=== PATIENT | female | born 1975 | race Caucasian/White ===

== ENCOUNTER → 2018-02-19 06:50 | Outpatient (CLI) | payer OTHER, SELFPAY ==
--- NOTE | 2018-02-19 06:55 | DI.RAD.S_ITS ---
PROCEDURE: XR CERVICAL SPINE 2V OR 3V INDICATIONS: neck pain TECHNIQUE: 3 view(s) of the cervical spine were acquired. COMPARISON: None. FINDINGS: Bones: Reversal of cervical lordosis may be positional or related to muscle spasm. No fractures or dislocations to the C7 level. The lateral masses of C1 appear intact on the odontoid view. No suspicious bony lesions. Soft tissues: No prevertebral soft tissue swelling. IMPRESSION: Loss of lordosis. No acute bony abnormality. Dictated by: Hudson Weber M.D. on 02/19/2018 at 8:15 Approved by: Hudson Weber M.D. on 02/19/2018 at 8:16
--- NOTE | 2018-02-19 06:55 | DI.RAD.S_ITS ---
PROCEDURE: XR CHEST 2V INDICATIONS: shortness of breath TECHNIQUE: 2 views of the chest were acquired. COMPARISON: None. FINDINGS: Surgical changes and devices: None. Lungs and pleura: No pleural effusions or pneumothorax. Lungs are clear. Mediastinum: Mediastinal contours are normal. Heart size is normal. Bones and chest wall: No suspicious bony abnormalities. Soft tissues appear unremarkable. IMPRESSION: No acute cardiopulmonary abnormality Dictated by: Hudson Weber M.D. on 02/19/2018 at 8:16 Approved by: Hudson Weber M.D. on 02/19/2018 at 8:16
[2018-02-19 08:09] LABS: Add Manual Diff / Slide Review NO; Basophils Percent Auto 0.6 % (0-2); Eosinophils Percent Auto 1.2 % (2-4); Hematocrit 42.4 % (36-46); Hemoglobin 14.5 g/dL (12.0-16.0); Mean Corpuscular HGB Conc 34.3 % (30-36); Mean Corpuscular Hemoglobin 31.9 PG (26-34); Monocytes Percent Auto 8.7 % (3-14); Neutrophils Absolute Auto 2300 /uL (3000-5900); Neutrophils Percent Auto 48.5 % (50-75); Platelet Count 274 X10^3/uL (150-400); Red Blood Cell Count 4.56 X10^6/uL (4.0-5.2); Red Cell Distribution Width 13.3 % (11.6-14.8); White Blood Cell Count 4.6 X10^3/uL (4.5-11.0)
[2018-02-19 08:28] LABS: Alanine Aminotransferase 25 IU/L (9-52); Albumin 4.5 g/dL (3.5-5.0); Albumin Globulin Ratio 1.6 (1.0-2.8); Alkaline Phosphatase 53 U/L (38-126); Aspartate Aminotransferase 25 IU/L (14-36); BUN Creatinine Ratio 34.3 (6-22); Bilirubin Total 0.8 mg/dL (0.2-1.3); Blood Urea Nitrogen 24 mg/dL (7-17); Calcium 9.5 mg/dL (8.4-10.2); Carbon Dioxide 33 mmol/L (22-32); Chloride 99 mmol/L (98-107); Cholesterol 218 mg/dL (140-199); Estimated Glomerular Filt Rate > 60.0 mL/min (>60); Globulin 2.9 g/dL (1.7-4.1); Glucose 103 mg/dL (70-100); HDL Cholesterol 80 mg/dL (40-60); HEMOLYSIS < 15 (0-50); LDL Cholesterol Calculated 120 mg/dL (<100); Potassium 4.1 mmol/L (3.4-5.1); Sodium 141 mmol/L (137-145); Total Protein 7.4 g/dL (6.3-8.2); Triglycerides 88 mg/dL (35-150)
[2018-02-19 08:58] LABS: Thyroid Stimulating Hormone 3.16 uIU/mL (0.47-4.68)
== END ==
PROVIDERS: PCP Family Medicine; Visit Provider Family Medicine
DX: M54.2 Cervicalgia (principal); R06.02 Shortness of breath; G54.0 Brachial plexus disorders
CPT/HCPCS: 36415; 71046; 72040; 80053; 80061; 84443; 85025

== ENCOUNTER → 2018-03-25 14:50 | Outpatient (CLI) | payer OTHER, SELFPAY ==
--- NOTE | 2018-03-25 14:51 | DI.MG.S_ITS ---
BILATERAL DIGITAL SCREENING MAMMOGRAM 3D/2D WITH CAD: 03/25/2018 CLINICAL: Routine screening. Baseline exam. No prior exams were available for comparison. There are scattered fibroglandular elements in both breasts. Current study was also evaluated with a Computer Aided Detection (CAD) system. No significant masses, calcifications, or other findings are seen in either breast. IMPRESSION: NEGATIVE There is no mammographic evidence of malignancy. A 1 year screening mammogram is recommended. This exam was interpreted at Station ID: [id number]. NOTE: For mammograms, a report in lay terms will be sent to the patient. Approximately 15% of breast malignancies will not be visualized mammographically. In the management of a palpable breast mass, a negative mammogram must not discourage biopsy of a clinically suspicious lesion. Electronically Signed By: Lilliam terrazas/idania:03/25/2018 16:28:35 letter sent: Normal Exam ACR BI-RADS Category 1: Negative [id number]
== END ==
PROVIDERS: Family Provider Family Medicine; PCP Family Medicine; Visit Provider Family Medicine
DX: Z12.31 Encounter for screening mammogram for malignant neoplasm of breast (principal)
CPT/HCPCS: 77063; 77067

== ENCOUNTER → 2018-04-17 18:58 | Outpatient (CLI) | payer OTHER, SELFPAY ==
--- NOTE | 2018-04-17 19:00 | DI.MRI.S_ITS ---
PROCEDURE: MR CERVICAL SPINE WO CON INDICATIONS: neck pain TECHNIQUE: Noncontrast sagittal T1 spin echo and T2 fast spin echo, sagittal STIR, foraminal oblique sagittal T2 fast spin echo, and axial gradient echo or T2 fast spin echo through the cervical spine. COMPARISON: [facility], CR, XR CERVICAL SPINE 2V OR 3V, 02/19/2018, 6:32. FINDINGS: Image quality: Excellent. Alignment and Curvature: Straightening of the normal cervical lordosis. Trace anterolisthesis of C4 on C5. Bone Marrow: Marrow demonstrates normal overall signal. Spinal Cord: Visualized spinal cord has normal size and signal. Paraspinous Soft Tissues: No paravertebral masses. Prevertebral soft tissues are normal in thickness. C2-C3: Normal appearance. C3-C4: Normal appearance. C4-C5: Bilateral uncovertebral arthropathy and posterior intervening disc osteophyte complex, and minimal bilateral facet disease. Minimal canal narrowing with effacement of the anterior CSF and slight mass effect on the cord. No left foraminal narrowing. No definite right foraminal stenosis. C5-C6: Bilateral uncovertebral arthropathy and posterior intervening disc osteophyte complex, and bilateral facet arthropathy. Mild canal narrowing with partial effacement of the anterior thecal sac. Minimal left foraminal narrowing. No definite right foraminal stenosis C6-C7: Bilateral uncovertebral arthropathy and posterior intervening disc osteophyte complex, mild and mild bilateral facet disease. No definite canal stenosis. No foraminal narrowing. C7-T1: Normal appearance. IMPRESSION: Straightening of the normal cervical lordosis, and trace anterolisthesis of C4 on C5. Mild C4-C5 and C5-C6 canal narrowing as above. Minimal left C5-6 foraminal stenosis. Elsewhere, no high-grade foraminal narrowing. Dictated by: Mario Rogers M.D. on 04/18/2018 at 8:14 Approved by: Mario Rogers M.D. on 04/18/2018 at 8:22
== END ==
PROVIDERS: Family Provider Family Medicine; PCP Family Medicine; Visit Provider Family Medicine
DX: M54.2 Cervicalgia (principal); M48.02 Spinal stenosis, cervical region; G89.29 Other chronic pain
CPT/HCPCS: 72141

== ENCOUNTER → 2018-05-16 14:50 | Outpatient (CLI) | payer OTHER, SELFPAY | PROVIDERS: Family Provider Family Medicine; PCP Family Medicine; Visit Provider Family Medicine | DX: M54.12 Radiculopathy, cervical region (principal); G54.0 Brachial plexus disorders | CPT/HCPCS: 95886; 95911 ==

== ENCOUNTER → 2018-09-21 12:15 | Outpatient (CLI) | payer OTHER, SELFPAY ==
[2018-09-21 13:06] LABS: Add Manual Diff / Slide Review NO; Basophils Absolute Auto 0 /uL (0-100); Basophils Percent Auto 0.6 % (0-2); Eosinophils Absolute Auto 0 /uL (0-450); Eosinophils Percent Auto 0.6 % (2-4); Hematocrit 45.4 % (36-46); Hemoglobin 15.1 g/dL (12.0-16.0); Lymphocytes Absolute Auto 1900 /uL (1100-4500); Lymphocytes Percent Auto 45.5 % (25-40); Mean Corpuscular HGB Conc 33.3 % (30-36); Mean Corpuscular Hemoglobin 31.3 PG (26-34); Mean Corpuscular Volume 93.9 fL (80-100); Monocytes Absolute Auto 400 /uL (0-900); Monocytes Percent Auto 8.7 % (3-14); Neutrophils Absolute Auto 1900 /uL (1500-7000); Neutrophils Percent Auto 44.6 % (50-75); Platelet Count 306 X10^3/uL (150-400); Red Blood Cell Count 4.84 X10^6/uL (4.0-5.2); Red Cell Distribution Width 13.3 % (11.6-14.8); White Blood Cell Count 4.2 X10^3/uL (4.5-11.0)
[2018-09-21 13:32] LABS: Hemoglobin A1C% w Est Avg Glu 5.1 % (4.0-6.0)
[2018-09-21 13:35] LABS: BUN Creatinine Ratio 22.2 (6-22); Blood Urea Nitrogen 20 mg/dL (7-17); Calcium 9.5 mg/dL (8.4-10.2); Carbon Dioxide 31 mmol/L (22-32); Chloride 96 mmol/L (98-107); Estimated Glomerular Filt Rate > 60.0 mL/min (>60); Glucose 90 mg/dL (70-100); HEMOLYSIS < 15 (0-50); Potassium 3.5 mmol/L (3.4-5.1); Sodium 140 mmol/L (137-145)
[2018-09-21 14:03] LABS: Thyroid Stimulating Hormone 1.06 uIU/mL (0.47-4.68)
[2018-09-21 14:43] LABS: Creatinine Urine Random 116.1 mg/dL
[2018-09-21 14:46] LABS: Microalbumin Urine Random 0.7 mg/dL (0-1.6)
== END ==
PROVIDERS: Family Provider Family Medicine; PCP Family Medicine; Referring Provider Naturopath; Visit Provider Family Medicine
DX: I10 Essential (primary) hypertension (principal); R53.83 Other fatigue; R89.9 Unspecified abnormal finding in specimens from other organs, systems and tissues; R73.09 Other abnormal glucose; Z13.0 Encounter for screening for diseases of the blood and blood-forming organs and certain disorders involving the immune mechanism; Z13.29 Encounter for screening for other suspected endocrine disorder
CPT/HCPCS: 36415; 80048; 82043; 82570; 83036; 84443; 85025

== ENCOUNTER 2019-02-04 13:22 | Emergency (ER) | payer OTHER, SELFPAY ==
[2019-02-04 13:47] VITALS: BP 153/82; PULSE 75; RESP 13; TEMP 36.8; O2SAT 100
--- NOTE | 2019-02-04 13:50 | PC.NURSE ---
Pt states she was exposed to carbon monoxide while cleaning the oven. It is an electric stove that she had on clean mode and there were pots and pans already in the oven, which caused some fumes to come out. The kitchen was well ventilated at the time. Comes in today stating she is not feeling right. Has easy work of breathing. Lung sounds are clear. No visible rashes, no cough. Carbon monoxide pulse oximeter reads 2% with 99% oxygen saturation.
--- NOTE | 2019-02-04 14:52 | ED_ITS ---
HPI - General Adult <DICK Faust-BC - Last Filed: 02/04/19 15:25> General Chief complaint: Environmental Exposure Stated complaint: carbon monoxide poisoning Time Seen by Provider: 02/04/19 13:58 Source: patient and family Mode of arrival: ambulatory Limitations: no limitations History of Present Illness HPI narrative: The patient is a 43-year-old female Never smoker with history of hysterectomy who presents with her for chief concern of carbon monoxide exposure. She states she was exposed to carbon monoxide while cleaning the oven last night. She states she was using an electric stove, and she put it on automatically mode with cast her pots and pans in the oven. She states that the house filled with fumes and smoke. She is concerned about carbon monoxide, as she was not feeling right after exposure to this smoke. She denies any chest pain. Denies any difficulty breathing. Denies any coughing or fever. She denies any chest pain. Related Data Previous Rx's Medication Instructions Recorded epinephrine 0.3 mg IM PRN PRN #30 syr 06/14/16 hydrocodone 5 mg-acetaminophen 325 1 tab PO Q4-6H PRN #10 tab 07/15/18 mg tablet bupropion HCl XL 300 mg 24 hr 300 mg PO QAM #90 tab 08/20/18 tablet, extended release hydrochlorothiazide 25 mg tablet 25 mg PO QDAY #90 tab 08/20/18 gabapentin 300 mg capsule See Rx Instructions PO .COMPLEX 10/25/18 PRN #360 cap Allergies Allergy/AdvReac Type Severity Reaction Status Date / Time clarithromycin [From BIAXIN] Allergy Intermediate welts/hives Verified 09/23/18 15:56 Review of Systems <SHRAVAN Faust - Last Filed: 02/04/19 15:25> Review of Systems GENERAL: Denies chills, fatigue, malaise, fever, sweats. HEENT: Denies sinus pain, ear pain, sore throat, difficulty swallowing, dizziness. RESPIRATORY: See HPI CARDIOVASCULAR: Denies chest pain, palpitations, orthopnea, edema, GASTROINTESTINAL: Denies nausea, vomiting, abdominal pain, diarrhea, constipation, melena. : Denies dysuria, frequency, incontinence, hematuria, urinary retention. MUSCULOSKELETAL: denies weakness, joint pain, or bony pain SKIN: Denies rash, skin lesions, or other NEUROLOGIC: Denies weakness, headache, numbness, change in speech, confusion, seizures, incoordination. PSYCHIATRIC: No concerning psychosocial issues. 12 point review of systems is negative except for those stated above PFSH <SHRAVAN Faust - Last Filed: 02/04/19 15:25> Medical History Asthma (Chronic ~1989) Endometriosis (Chronic ~1989) Gluten intolerance (Chronic ~2007) Hypertension (Chronic ~1991) Thoracic outlet syndrome (Chronic ~1991) Chicken pox (Resolved ~1979) Surgical History History of hysterectomy (Resolved ~04/2001) History of laparoscopy (Resolved) Hx of removal of ovary (Resolved ~08/2002) Status post breast reduction (Resolved ~07/2010) Surgical procedure planned (Resolved ~02/1998) Family History (Updated 02/27/18 @ 20:09 by Dee Dee Mckeon) Father Hyperlipidemia Mother Diabetes mellitus Hypertension Grandfather Stroke Grandmother Diabetes mellitus Hypertension Stroke Grandfather Cancer Grandmother History of emphysema Social History Smoking Status: Never smoker Family History Father Hyperlipidemia Mother Diabetes mellitus Hypertension Grandfather Stroke Grandmother Diabetes mellitus Hypertension Stroke Grandfather Cancer Grandmother History of emphysema Social History Smoking Status: Never smoker Exam <SHRAVAN Faust - Last Filed: 02/04/19 15:25> Narrative Exam Narrative: GENERAL: This is a well-nourished, well-developed patient, no acute distress HEAD: Atraumatic. Normocephalic. No temporal or scalp tenderness. EYES: Pupils equal round and reactive. Extraocular motions intact. No scleral icterus. No injection or drainage. ENT: Nose without bleeding, purulent drainage or septal hematoma. Throat without erythema, tonsillar hypertrophy or exudate. Uvula midline. Airway patent. NECK: Trachea midline. No JVD or lymphadenopathy. Supple, nontender, no meningeal signs. CARDIOVASCULAR: Regular rate and rhythm without murmurs, gallops, or rubs. RESPIRATORY: Clear to auscultation. Breath sounds equal bilaterally. No wheezes, rales, or rhonchi. No cough. No increased respiratory effort. No accessory muscle use. No stridor. GASTROINTESTINAL: Abdomen soft, non-tender, nondistended. No hepato- splenomegaly, or palpable masses. No guarding. EXTREMITIES: No clubbing, cyanosis, or edema. No joint tenderness, effusion, or edema noted. BACK: Nontender without deformity or crepitance. No flank tenderness. NEURO: AOx3. SKIN: No rash or erythema. Initial Vital Signs Initial Vital Signs: Vital Signs Temperature 98.2 F 02/04/19 13:47 Pulse Rate 75 02/04/19 13:47 Respiratory Rate 13 02/04/19 13:47 Blood Pressure 153/82 H 02/04/19 13:47 Pulse Oximetry 100 02/04/19 13:47 <Merissa Osman DO - Last Filed: 02/04/19 19:15> Initial Vital Signs Initial Vital Signs: Vital Signs Temperature 98.2 F 02/04/19 13:47 Pulse Rate 75 02/04/19 13:47 Respiratory Rate 13 02/04/19 13:47 Blood Pressure 153/82 H 02/04/19 13:47 Pulse Oximetry 100 02/04/19 13:47 Course <SHRAVAN Faust - Last Filed: 02/04/19 15:25> Vital Signs - 8 hr 02/04/19 13:47 02/04/19 14:58 Temperature 98.2 F Pulse Rate 75 65 Respiratory Rate 13 14 Blood Pressure 153/82 H 146/72 H Pulse Oximetry 100 99 <Merissa Osman DO - Last Filed: 02/04/19 19:15> Vital Signs - 8 hr 02/04/19 13:47 02/04/19 14:58 Temperature 98.2 F Pulse Rate 75 65 Respiratory Rate 13 14 Blood Pressure 153/82 H 146/72 H Pulse Oximetry 100 99 Medical Decision Making <SHRAVAN Faust - Last Filed: 02/04/19 15:25> [facility] Narrative Medical decision making narrative: The patient is a 43-year-old female who presents with a chief complaint of carbon monoxide poisoning. The triage carbon monoxide pulse oximeter read 2%. She is 99% on room air. She immediately felt much improved after a small dose of oxygen in the emergency department requested to go home. She does not have any shortness of breath or chest pain. I discussed at length coming back to the ER for any acute concerns. Encouraged follow-up with PCP. Discharge Plan Departure Patient Disposition: Home Clinical Impression: Person with feared complaint, no diagnosis made Discharge Date/Time: 02/04/19 14:59 Interventions: ED Discharge Assessment Last Done: 02/04/19 14:58 Instructions: DI for Carbon Monoxide Poisoning, Preventing Carbon Monoxide Poisoning Activity Restrictions/Additional Instructions: Your testing improved showed no signs of carbon monoxide poisoning You improved greatly today after some oxygen. Please be careful For exposures in the future. Please come back to the ER for any acute concerns such as difficulty breathing or shortness of breath. Please follow up with primary care provider. Prescriptions: No Action hydrocodone-acetaminophen [[place]] 5-325 mg tablet 1 tab PO Q4-6H PRN (Reason: pain) Qty: 10 RF: 0 epinephrine 0.3 MG/0.3 ML auto-injector 0.3 mg IM PRN PRNQty: 30 RF: 13 gabapentin 300 mg capsule See Rx Instructions PO .COMPLEX PRN (Reason: pain from shingles) Qty: 360 RF: 5 bupropion HCl [Wellbutrin XL] 300 mg tablet extended release 24 hr 300 mg PO QAM Qty: 90 RF: 3 hydrochlorothiazide 25 mg tablet 25 mg PO QDAY Qty: 90 RF: 3 Referrals: Graham Shah MD [Primary Care Provider] - <Merissa Osman DO - Last Filed: 02/04/19 19:15> Cosign ED Attending Cosveronicaature Attestation: I was immediately available in the department for consultation, case discussed. Patient exposure to CO is less likely with electric oven. CO was negative on monitor. This documentation has been reviewed and I agree with assessment and plan. Supervised by Merissa Osman DO
[2019-02-04 14:58] VITALS: BP 146/72; PULSE 65; RESP 14; O2SAT 99
== END 2019-02-04 14:59 | disposition home or self-care (01) ==
PROVIDERS: Emergency Provider Nurse Practitioner Family; Family Provider Family Medicine; PCP Family Medicine
DX: T75.89XA Other specified effects of external causes, initial encounter (principal); Z71.1 Person with feared health complaint in whom no diagnosis is made
CPT/HCPCS: 99282

== ENCOUNTER → 2019-02-11 15:44 | Outpatient (CLI) | payer OTHER, SELFPAY ==
[2019-02-11 16:24] LABS: Add Manual Diff / Slide Review NO; Basophils Absolute Auto 0 /uL (0-100); Basophils Percent Auto 0.7 % (0-2); Eosinophils Absolute Auto 0 /uL (0-450); Eosinophils Percent Auto 0.8 % (2-4); Hematocrit 43.1 % (36-46); Hemoglobin 14.5 g/dL (12.0-16.0); Lymphocytes Absolute Auto 2200 /uL (1100-4500); Lymphocytes Percent Auto 39.1 % (25-40); Mean Corpuscular HGB Conc 33.6 % (30-36); Mean Corpuscular Hemoglobin 31.3 PG (26-34); Mean Corpuscular Volume 93.3 fL (80-100); Monocytes Absolute Auto 500 /uL (0-900); Monocytes Percent Auto 9.4 % (3-14); Neutrophils Absolute Auto 2800 /uL (1500-7000); Platelet Count 262 X10^3/uL (150-400); Red Blood Cell Count 4.62 X10^6/uL (4.0-5.2); Red Cell Distribution Width 13.7 % (11.6-14.8); White Blood Cell Count 5.6 X10^3/uL (4.5-11.0)
[2019-02-11 16:35] LABS: Alanine Aminotransferase 27 IU/L (9-52); Albumin 4.7 g/dL (3.5-5.0); Albumin Globulin Ratio 1.6 (1.0-2.8); Alkaline Phosphatase 69 U/L (38-126); Aspartate Aminotransferase 30 IU/L (14-36); BUN Creatinine Ratio 22.9 (6-22); Blood Urea Nitrogen 16 mg/dL (7-17); Calcium 9.7 mg/dL (8.4-10.2); Carbon Dioxide 29 mmol/L (22-32); Chloride 100 mmol/L (98-107); Estimated Glomerular Filt Rate > 60.0 mL/min (>60); Glucose 86 mg/dL (70-100); HEMOLYSIS < 15 (0-50); Potassium 3.7 mmol/L (3.4-5.1); Sodium 139 mmol/L (137-145); Total Protein 7.7 g/dL (6.3-8.2)
[2019-02-11 16:41] LABS: HEMOLYSIS < 15 (0-50); Iron 80 ug/dL (37-170)
[2019-02-11 16:51] LABS: Percent Iron Saturation 23 % (15-50); Total Iron Binding Capacity 350 ug/dL (265-497); Transferrin 321 mg/dL (206-381)
[2019-02-11 17:09] LABS: Ferritin 64.1 ng/mL (6.27-137)
== END ==
PROVIDERS: Family Provider Family Medicine; PCP Family Medicine; Visit Provider Physician Assistant
DX: K92.1 Melena (principal); R10.9 Unspecified abdominal pain; R11.0 Nausea
CPT/HCPCS: 36415; 80053; 82728; 83540; 83550; 85025

== ENCOUNTER → 2019-02-12 07:29 | Outpatient (CLI) | payer OTHER, SELFPAY ==
--- NOTE | 2019-02-12 07:32 | DI.RAD.S_ITS ---
PROCEDURE: XR CHEST 2V INDICATIONS: Dyspnea TECHNIQUE: 2 views of the chest were acquired. COMPARISON: [facility], CR, XR CHEST 2V, 02/19/2018, 6:32. FINDINGS: Surgical changes and devices: None. Lungs and pleura: Lungs are clear. No pleural effusions or pneumothorax. Mediastinum: Mediastinal contours are normal. Heart size is normal. Bones and chest wall: No suspicious bony abnormalities. Soft tissues appear unremarkable. IMPRESSION: No acute disease Dictated by: Mario Rogers M.D. on 02/12/2019 at 12:50 Approved by: Mario Rogers M.D. on 02/12/2019 at 12:51
--- NOTE | 2019-02-12 07:32 | DI.CT.S_ITS ---
PROCEDURE: CT ABDOMEN PELVIS W CON INDICATIONS: Mass LUQ possible hernia migrating up into chest wall TECHNIQUE: After the administration of oral and intravenous contrast, 5 mm thick sections acquired from the diaphragms to the symphysis. 5 mm thick coronal and sagittal reformats were performed. For radiation dose reduction, the following was used: automated exposure control, adjustment of mA and/or kV according to patient size. COMPARISON: None. FINDINGS: Image quality: Excellent. ABDOMEN: Lung bases: Sub-solid appearing pleural based nodular density measures 3 mm in size is seen in posterior lateral aspect of left lower lobe series 3 image one. 4 mm soft tissue density nodule in posterior aspect of right lower lobe new right lung base is also seen series 3 image one. Bibasilar atelectasis is seen. No pleural effusion or pneumothorax. Heart size is normal. Solid organs: Liver is enlarged in size. Hepatic steatosis is seen. No discrete hepatic lesion. Gallbladder is within normal limits. Biliary system is non-dilated. Pancreas enhances normally. Spleen is normal in size and enhancement. No adrenal nodules. Kidneys are normal in size and enhancement, without hydronephrosis. Peritoneum and bowel: Stomach, small bowel, and colon loops are normal in caliber and wall thickness. No free fluid or air. Mild fecal stasis in the colon is seen. Sigmoid diverticulosis is noted, no CT evidence of acute diverticulitis. There is suggestion of a small hiatal hernia. Nodes and vessels: No retroperitoneal or mesenteric adenopathy. Aorta and inferior vena cava are normal in caliber. Miscellaneous: No ventral hernias. PELVIS: Genitourinary: Bladder wall thickness is normal. Miscellaneous: No inguinal hernias or adenopathy. Bones: No suspicious bony lesions. No vertebral body compression fractures. IMPRESSION: 1. No evidence of anterior abdominal wall hernia. No inguinal hernia. Small hiatal hernia. 2. Mild constipation. No bowel obstruction. No free fluid or free air. Sigmoid diverticulosis, no evidence of acute diverticulitis. 3. Hepatomegaly and hepatic steatosis. No discrete hepatic lesion. 4. Tiny 3-4 mm nodular density in bilateral lung bases as above, followup CT of chest in 6-12 month is suggested for evaluation of stability. Dictated by: Orestes Stuart M.D. on 02/12/2019 at 13:03 Approved by: Orestes Stuart M.D. on 02/12/2019 at 13:12
== END ==
PROVIDERS: PCP Family Medicine; Visit Provider Physician Assistant
DX: R11.0 Nausea (principal); R10.9 Unspecified abdominal pain; K92.1 Melena; R06.00 Dyspnea, unspecified; R10.12 Left upper quadrant pain; R53.83 Other fatigue
CPT/HCPCS: 71046; 74177; Q9967

== ENCOUNTER 2019-02-12 12:25 | Emergency (ER) | payer OTHER, SELFPAY ==
[2019-02-12 12:30] VITALS: BP 147/94; PULSE 98; RESP 18; TEMP 36.7; O2SAT 99; BMI 22.8
[2019-02-12 13:00] VITALS: BP 131/90; PULSE 88; RESP 18; O2SAT 100
--- NOTE | 2019-02-12 13:17 | DI.RAD.S_ITS ---
PROCEDURE: XR CHEST 1V INDICATIONS: chest pain, lump in chest TECHNIQUE: One view of the chest was acquired. COMPARISON: [facility], CR, XR CHEST 2V, 02/12/2019, 7:38. FINDINGS: Surgical changes and devices: None. Lungs and pleura: Lungs are clear. No pleural effusions or pneumothorax. Mediastinum: Mediastinal contours appear normal. Heart size is normal. Bones and chest wall: No suspicious bony lesions. Overlying soft tissues appear unremarkable. IMPRESSION: No acute disease. For palpable abnormality, focused ultrasound could be performed for further assessment. Dictated by: Mario Rogers M.D. on 02/12/2019 at 13:46 Approved by: Mario Rogers M.D. on 02/12/2019 at 13:46
[2019-02-12 13:27] LABS: Add Manual Diff / Slide Review NO; Basophils Absolute Auto 0 /uL (0-100); Basophils Percent Auto 0.5 % (0-2); Eosinophils Absolute Auto 0 /uL (0-450); Eosinophils Percent Auto 0.4 % (2-4); Hematocrit 41.9 % (36-46); Hemoglobin 14.3 g/dL (12.0-16.0); INR 0.9 (0.9-1.3); Lymphocytes Absolute Auto 2600 /uL (1100-4500); Lymphocytes Percent Auto 43.8 % (25-40); Mean Corpuscular HGB Conc 34.2 % (30-36); Mean Corpuscular Hemoglobin 31.6 PG (26-34); Mean Corpuscular Volume 92.5 fL (80-100); Monocytes Absolute Auto 400 /uL (0-900); Monocytes Percent Auto 7.5 % (3-14); Neutrophils Absolute Auto 2800 /uL (1500-7000); Neutrophils Percent Auto 47.8 % (50-75); Platelet Count 261 X10^3/uL (150-400); Prothrombin Time 10.7 SECONDS (10.1-12.7); Red Blood Cell Count 4.54 X10^6/uL (4.0-5.2); Red Cell Distribution Width 13.4 % (11.6-14.8); White Blood Cell Count 5.9 X10^3/uL (4.5-11.0)
[2019-02-12 13:29] LABS: PTT Partial Thromboplastin Tim 28 SECONDS (26.4-36.2)
[2019-02-12 13:30] LABS: Alanine Aminotransferase 33 IU/L (9-52); Albumin 4.3 g/dL (3.5-5.0); Albumin Globulin Ratio 1.4 (1.0-2.8); Alkaline Phosphatase 65 U/L (38-126); Aspartate Aminotransferase 40 IU/L (14-36); BUN Creatinine Ratio 21.4 (6-22); Bilirubin Total 1.5 mg/dL (0.2-1.3); Blood Urea Nitrogen 15 mg/dL (7-17); Calcium 9.9 mg/dL (8.4-10.2); Carbon Dioxide 28 mmol/L (22-32); Chloride 101 mmol/L (98-107); Creatine Kinase 76 U/L (30-135); D Dimer < 200 ng/mL (<230); Estimated Glomerular Filt Rate > 60.0 mL/min (>60); Glucose 97 mg/dL (70-100); HEMOLYSIS 30 (0-50); Lipase 146 U/L (23-300); Potassium 3.8 mmol/L (3.4-5.1); Sodium 137 mmol/L (137-145); Total Protein 7.3 g/dL (6.3-8.2)
[2019-02-12] MEDS: MORPHINE 4 MG/ML INJ IV (13:31)
[2019-02-12] MEDS: SODIUM CHLORIDE 0.9% 1,000 ML 1000 ML IV (13:31)
--- NOTE | 2019-02-12 13:31 | ED.CHESTPAIN ---
HPI - Chest Pain General Chief Complaint: Abdominal Pain Stated Complaint: states hernia lodged behind her diaphram Time Seen by Provider: 02/12/19 12:56 Source: patient and family (son) Limitations: no limitations History of Present Illness HPI narrative: This is a 43-year-old female comes to the emergency department with complaint of left-sided chest/abdominal pain. Patient states sort of right underneath the left breast. It is feels like it sort of popped out or there is a new lump underneath the breast. She is concerned about a hernia. She states it is tender but that the tenderness sometimes goes up into the axilla. Patient denies any fevers or chills. She sometimes has some pain with movement but also with deep inspiration. Patient also states that it sometimes is in the left abdomen. Patient states that if she coughs or has a big bump it makes it worse. If she stands up or moves around she notices it more significantly that if she is lying flat. She states that she did have a bilateral breast reduction that was in 2010. Patient has not had any vomiting but has been nauseated on occasion. She states that she has had some changes to her stool. They have been a little bit softer than normal. Patient described black stool as well. She takes medication for blood pressure, bupropion. Patient saw her primary care physician and had a CT of her abdomen pelvis as well as a chest x-ray today. Patient does not have the final report. She states she has a known hiatal hernia. She also states she was here last week for possible carbon monoxide exposure that occurred while she was cleaning her electric up oven. She was evaluated department. Carbon oxide testing was in the normal range. Related Data Home Medications Medication Instructions Recorded Confirmed hydrochlorothiazide 25 mg tablet 12.5 mg PO DAILY 02/11/19 02/12/19 [place] Progesterone 1 dose PO DAILY 02/12/19 02/12/19 epinephrine 0.3 mg IM PRN PRN 02/12/19 02/12/19 Previous Rx's Medication Instructions Recorded bupropion HCl XL 300 mg 24 hr 300 mg PO QAM #90 tab 08/20/18 tablet, extended release hydrocodone-acetaminophen [Dumas] 1 tab PO QID PRN #10 tab 02/12/19 Allergies Allergy/AdvReac Type Severity Reaction Status Date / Time clarithromycin [From BIAXIN] Allergy Intermediate welts/hives Verified 02/12/19 12:30 Review of Systems Review of Systems ROS Unobtainable: All systems reviewed & are unremarkable except as noted in HPI and below Constitutional Denies chills, Denies fever(s), Denies lethargy and Denies weakness Cardiovascular Reports chest pain, Denies diaphoresis, Reports syncope (1-2 weeks ago.), Denies edema, Denies irregular heart rhythm, Denies lightheadedness, Denies palpitations, Denies dyspnea, Denies dyspnea on exertion and Denies orthopnea Respiratory Denies change in phlegm color, Denies chest congestion, Denies cough, Denies hemoptysis, Denies excessive phlegm production, Reports pain on inspiration, Reports pain with cough, Denies dyspnea, Denies dyspnea on exertion and Denies wheezing Gastrointestinal Gastrointestinal: Reports abdominal pain, Denies belching, Reports melena, Denies hematochezia, Denies change in bowel habits, Denies diarrhea, Denies nausea and Denies vomiting Genitourinary Denies abnormal menses, Denies abnormal vaginal bleeding, Denies hematuria, Denies urinary frequency, Denies dysuria, Denies flank pain, Denies urinary incontinence, Denies urinary urgency and Denies vaginal discharge Musculoskeletal Denies back pain, Denies muscle weakness, Denies numbness and Denies tingling Integumentary/Breasts Denies rash and Denies unusual bruising Neurologic Reports syncope (1-2 weeks ago.), Denies focal weakness, Denies numbness, Denies tingling and Denies weakness Endocrine Denies palpitations Allergic/Immunologic Denies wheezing COUNTS INCLUDE 234 BEDS AT THE [facility] Medical History Asthma (Chronic ~1989) Endometriosis (Chronic ~1989) Gluten intolerance (Chronic ~2007) Hypertension (Chronic ~1991) Thoracic outlet syndrome (Chronic ~1991) Chicken pox (Resolved ~1979) Surgical History History of hysterectomy (Resolved ~04/2001) History of laparoscopy (Resolved) Hx of removal of ovary (Resolved ~08/2002) Status post breast reduction (Resolved ~07/2010) Surgical procedure planned (Resolved ~02/1998) Family History Father Hyperlipidemia Mother Diabetes mellitus Hypertension Grandfather Stroke Grandmother Diabetes mellitus Hypertension Stroke Grandfather Cancer Grandmother History of emphysema Social History Smoking Status: Never smoker second hand exposure: No alcohol intake: current (scotch a few times a week) substance use type: marijuana (I smoke marijuana daily due to discomfort) Family History Father Hyperlipidemia Mother Diabetes mellitus Hypertension Grandfather Stroke Grandmother Diabetes mellitus Hypertension Stroke Grandfather Cancer Grandmother History of emphysema Social History Smoking Status: Never smoker second hand exposure: No alcohol intake: current (scotch a few times a week) substance use type: marijuana (I smoke marijuana daily due to discomfort) Exam Narrative Exam Narrative: GENERAL: Alert and oriented x three, well-nourished female in mild distress. Patient appears quite anxious initial evaluation. She also prefers to keep her left arm up above her head. HEENT: Head normocephalic, atraumatic, EOMI, pupils reactive, face symmetric, moist mucous membranes NECK: Supple, full range of motion CARDIOVASCULAR: Regular rate and rhythm without murmurs, rubs or gallops. On palpation of the chest patient does seem a little bit tender. While lying flat I do not appreciate any fullness or changes to the skin. When she stands up she does have a little bit more fullness underneath the left breast that she does on the right. I am not able to palpate a mass, there is only visualized fullness not able to even palpate more fullness or induration of the skin itself. There is no erythema or other skin color changes. Patient has he healed incisions consistent with breast reduction. RESPIRATORY: Breath sounds equal bilaterally, no wheezes rales or rhonchi. ABDOMEN: Soft, nontender. Normoactive bowel sounds all 4 quadrants. No guarding or rebound, rigidity, no mass : No CVA tenderness EXTREMITIES: Normal range of motion, no clubbing or edema. Neurovascularly intact NEUROLOGICAL: Cranial nerves II through XII grossly intact. Moving all extremities SKIN: Warm, dry, no petechiae, no rashes or lesions. No ecchymoses. No erythema or lesions on the chest or back. Initial Vital Signs Initial Vital Signs: Vital Signs Temperature 98.1 F 02/12/19 12:30 Pulse Rate 98 H 02/12/19 12:30 Respiratory Rate 18 02/12/19 12:30 Blood Pressure 147/94 H 02/12/19 12:30 Pulse Oximetry 99 02/12/19 12:30 Scores HEART Score Heart Score history: Slightly Suspicious Heart Score EKG: Normal Heart Score Age: < 45 years old Heart Score risk factors: 1-2 risk factors Heart Score troponin: < or = to normal limit Heart Score Total: 1 PERC Score Age greater than or equal to 50 years: No Heart rate greater than or equal to 100 bpm: No Room Air O2 Sat less than 95%: No Unilateral leg swelling: No Recent trauma or surgery: No Hemoptysis: No Prior PE or DVT: No Hormone Use: Yes (wild yam progesterone) Total PERC Score: 1 Course Orders Ordered: ED Orders 02/12/19 12:32 EKG-12 Lead Routine EKG-12 Lead Stat 02/12/19 13:00 Complete Blood Count AUTO DIFF Stat Comprehensive Metabolic Panel Stat D Dimer Stat Lipase Stat Partial Thromboplastin Time Stat Prothrombin Time INR Stat Troponin & CK Cardiac Panel Stat 02/12/19 13:17 XR chest 1V Stat 02/12/19 14:13 US chest Stat Discontinued Medications Sodium Chloride (Normal Saline 0.9%) 1,000 mls @ 1,000 mls/hr IV BOLUS ONE Stop: 02/12/19 14:15 Last Infusion: 02/12/19 15:02 Dose: 0 mls/hr Admin: 02/12/19 13:31 Dose: 1,000 mls/hr Morphine Sulfate (Morphine) 4 mg IV NOW ONE Stop: 02/12/19 13:19 Last Admin: 02/12/19 13:31 Dose: 4 mg Vital Signs - 8 hr 02/12/19 12:30 02/12/19 13:00 02/12/19 14:00 Temperature 98.1 F Pulse Rate 98 H 88 68 Respiratory Rate 18 18 12 Blood Pressure 147/94 H Blood Pressure [Right Arm] 131/90 138/87 Pulse Oximetry 99 100 02/12/19 15:00 02/12/19 16:00 Temperature Pulse Rate 70 77 Respiratory Rate 13 20 Blood Pressure Blood Pressure [Right Arm] 127/80 123/85 Pulse Oximetry MDM - Chest Pain Lab Data Attestation: I reviewed the patient's lab results. Result diagrams: 02/12/19 13:00 02/12/19 13:00 Lab Results 02/12/19 02/12/19 02/12/19 Range/Units 13:00 13:00 13:00 WBC 5.9 (4.5-11.0) X10^3/uL RBC 4.54 (4.0-5.2) X10^6/uL Hgb 14.3 (12.0-16.0) g/dL Hct 41.9 (36-46) % MCV 92.5 (80-100) fL MCH 31.6 (26-34) PG MCHC 34.2 (30-36) % RDW 13.4 (11.6-14.8) % Plt Count 261 (150-400) X10^3/uL Neut % (Auto) 47.8 L (50-75) % Lymph % (Auto) 43.8 H (25-40) % Pettis % (Auto) 7.5 (3-14) % Eos % (Auto) 0.4 L (2-4) % Baso % (Auto) 0.5 (0-2) % Neut # (Auto) 2800 (2090-7313) /uL Lymph # (Auto) 2600 (9020-7346) /uL Pettis # (Auto) 400 (0-900) /uL Eos # (Auto) 0 (0-450) /uL Baso # (Auto) 0 (0-100) /uL PT 10.7 (10.1-12.7) SECONDS INR 0.9 (0.9-1.3) APTT 28 (26.4-36.2) SECONDS D-Dimer < 200 (<230) ng/mL Sodium 137 (137-145) mmol/L Potassium 3.8 (3.4-5.1) mmol/L Chloride 101 (98-107) mmol/L Carbon Dioxide 28 (22-32) mmol/L BUN 15 (7-17) mg/dL Creatinine 0.70 (0.52-1.04) mg/dL Estimated GFR > 60.0 (>60) mL/min BUN/Creatinine Ratio 21.4 (6-22) Glucose 97 (70-100) mg/dL Calcium 9.9 (8.4-10.2) mg/dL Total Bilirubin 1.5 H (0.2-1.3) mg/dL AST 40 H (14-36) IU/L ALT 33 (9-52) IU/L Alkaline Phosphatase 65 (38-126) U/L Total Creatine Kinase 76 (30-135) U/L CK-MB (CK-2) TNP CK-MB (CK-2) Rel Index TNP Troponin I < 0.012 (0.01-0.034) ng/mL Total Protein 7.3 (6.3-8.2) g/dL Albumin 4.3 (3.5-5.0) g/dL Globulin 3.0 (1.7-4.1) g/dL Albumin/Globulin Ratio 1.4 (1.0-2.8) Lipase 146 (23-300) U/L Urine Dip Bedside Urine Glucose Negative Bedside Urine Bilirubin - Negative Bedside Urine Ketone +/- 5 Urine Specific [place] 1.010 Bedside Urine Occult Blood - Negative Bedside Urine pH 8.0 Bedside Urine Protein - Negative Bedside Urine Urobilinogen - Negative Bedside Urine Nitrite - Negative Bedside Urine Leukocytes - Negative Esterase Imaging Data Chest x-ray: Radiologist's impression: [address] [address] XRay Report Signed Patient: Tay FreemanR#: [id number] : 1975Acct:[id number] Age/Sex: 43 / FDate of Service: 02/12/19 Loc: ED Accession Number: [id number] Procedure: XR chest 1V Ordering Provider: Merissa Osman D.O. PROCEDURE: XR CHEST 1V INDICATIONS: chest pain, lump in chest TECHNIQUE: One view of the chest was acquired. [facility] 7:38. FINDINGS: Surgical changes and devices: None. Lungs and pleura: Lungs are clear. No pleural effusions or pneumothorax. Mediastinum: Mediastinal contours appear normal. Heart size is normal. Bones and chest wall: No suspicious bony lesions. Overlying soft tissues appear unremarkable. IMPRESSION: No acute disease. For palpable abnormality, focused ultrasound could be performed for further assessment. Dictated by: Mario Rogers M.D. on 02/12/2019 at 13:46 Approved by: Mario Rogers M.D. on 02/12/2019 at 13:46 CT scan - abdomen: Radiologist's impression: [address] [address] [address] Scan Report Signed Patient: Tay FreemanR#: [id number] : 1975Acct:[id number] Age/Sex: 43 / FDate of Service: 02/12/19 Loc: CT Accession Number: [id number] Procedure: CT abdomen pelvis w con Ordering Provider: Teresita Chicas P.A-C PROCEDURE: CT ABDOMEN PELVIS W CON INDICATIONS: Mass LUQ possible hernia migrating up into chest wall TECHNIQUE: After the administration of oral and intravenous contrast, 5 mm thick sections acquired from the diaphragms to the symphysis. 5 mm thick coronal and sagittal reformats were performed. For radiation dose reduction, the following was used: automated exposure control, adjustment of mA and/or kV according to patient size. COMPARISON: None. FINDINGS: Image quality: Excellent. ABDOMEN: Lung bases: Sub-solid appearing pleural based nodular density measures 3 mm in size is seen in posterior lateral aspect of left lower lobe series 3 image one. 4 mm soft tissue density nodule in posterior aspect of right lower lobe new right lung base is also seen series 3 image one. Bibasilar atelectasis is seen. No pleural effusion or pneumothorax. Heart size is normal. Solid organs: Liver is enlarged in size. Hepatic steatosis is seen. No discrete hepatic lesion. Gallbladder is within normal limits. Biliary system is non-dilated. Pancreas enhances normally. Spleen is normal in size and enhancement. No adrenal nodules. Kidneys are normal in size and enhancement, without hydronephrosis. Peritoneum and bowel: Stomach, small bowel, and colon loops are normal in caliber and wall thickness. No free fluid or air. Mild fecal stasis in the colon is seen. Sigmoid diverticulosis is noted, no CT evidence of acute diverticulitis. There is suggestion of a small hiatal hernia. Nodes and vessels: No retroperitoneal or mesenteric adenopathy. Aorta and inferior vena cava are normal in caliber. Miscellaneous: No ventral hernias. PELVIS: Genitourinary: Bladder wall thickness is normal. Miscellaneous: No inguinal hernias or adenopathy. Bones: No suspicious bony lesions. No vertebral body compression fractures. IMPRESSION: 1. No evidence of anterior abdominal wall hernia. No inguinal hernia. Small hiatal hernia. 2. Mild constipation. No bowel obstruction. No free fluid or free air. Sigmoid diverticulosis, no evidence of acute diverticulitis. 3. Hepatomegaly and hepatic steatosis. No discrete hepatic lesion. 4. Tiny 3-4 mm nodular density in bilateral lung bases as above, followup CT of chest in 6-12 month is suggested for evaluation of stability. Dictated by: Orestes Stuart M.D. on 02/12/2019 at 13:03 Approved by: Orestes Stuart M.D. on 02/12/2019 at 13:12 chest wall US: Radiologist's impression: [address] [address] Ultrasound Report Signed Patient: Tay Freeman#: [id number] : 1975Acct:[id number] Age/Sex: 43 / FDate of Service: 02/12/19 Loc: ED Accession Number: [id number] Procedure: US chest Ordering Provider: Merissa Osman D.O. PROCEDURE: US CHEST [facility], CR, XR CHEST 1V, 02/12/2019, 13:23. INDICATIONS: full below left breast w/ standing, painful, hx reduction'11 FINDINGS: Targeted sonographic imaging of the left anterior chest was performed to evaluate for a site of the patient's area of fullness along the inferior margin of the left breast, status post breast reduction. No soft tissue mass or loculated fluid collection is identified. No suspicious soft tissue abnormalities are evident. IMPRESSION: No focal abnormalities are evident on the anterior anterior left chest at the site of the patient's fullness. There are no fluid collections or masses. Dictated by: Agus Montaño M.D. on 02/12/2019 at 14:51 Approved by: Agus Montaño M.D. on 02/12/2019 at 14:56 ECG Data Attestation: I personally reviewed and interpreted this ECG as follows: Interpretation: Sinus rhythm rate of 90 P are 156 QRS of 91 QTC of 388. No acute process an EKG. No prior for comparison. MDM Narrative Medical decision making narrative: Patient's labs show slightly elevated lymphocyte count of 43.8%. Otherwise normal CBC, coags including D-dimer are negative, CMP shows normal BMP with a elevated bilirubin at 1.5 and AST of 40 with an ALT that is 33, alk-phos that is normal at 65, normal lipase and negative troponin. Chest x-ray does not show any acute changes. Patient has CT of the abdomen pelvis today that showed no evidence of hernia abdominal wall hernia, there is a small hiatal hernia. Some mild constipation. Some sigmoid diverticulosis without evidence of diverticulitis. Hepatomegaly and hepatic steatosis. Some tiny nodular de nsity in the bilateral lung bases follow-up a CT of the chest in 6-12 months is suggested for evaluation of stability. Chest wall ultrasound did not show any acute findings. We did discuss getting a CT of the chest but patient has already had significant contrast and radiation today. After discussion patient was agreeable to ultrasound knowing that we can't completely rule out PE or other structural changes to the lungs but that her lab work other change in elevated bilirubin does not suggest that she is having a cardiac or pulmonary cause or vascular cause at this time. Patient is much more comfortable after a dose of morphine. Did evaluate in the [facility] systems she does not have regular narcotic medications. Discussed with patient to follow up with her primary care either Dr. Shah or pseudo ordered in who she has been seeing recently. They can discuss if they feel that she does need further imaging in the short term. And patient can get any further imaging in the long-term as suggested by her imaging ordered earlier today by her primary service. Patient given short term narcotic prescription for breakthrough pain and strict return precautions. Discharge Plan Departure Patient Disposition: Home Clinical Impression: Atypical chest pain, Elevated bilirubin, Pulmonary nodule Instructions: DI for Atypical Chest Pain Activity Restrictions/Additional Instructions: Follow up with your primary care physician in the next week for recheck. Call for an appointment. You may take ibuprofen up to 2400 mg in a 24 hour period he may take 600 mg every 6 hours. You may take up to a 1000 mg every 8 hours or 3000 mg in 24 hours. Her pain medication that is prescribed also has Tylenol so do not take Tylenol and the pain medication prescribed at the same time. Take pain medication as prescribed, this medication can make a very sleepy, do not drive, perform hazardous activities or make any major decisions while taking it. You may continue your home medications as prescribed. Return to the emergency department for fevers greater 100.4 F, passing out, rapidly worsening or changing chest pain, shortness of breath, persistent vomiting, black or bloody stools or other new or concerning symptoms. Prescriptions: New hydrocodone-acetaminophen [Dumas] 5-325 mg tablet 1 tab PO QID PRN (Reason: pain) Qty: 10 RF: 0 No Action bupropion HCl [Wellbutrin XL] 300 mg tablet extended release 24 hr 300 mg PO QAM Qty: 90 RF: 3 hydrochlorothiazide 25 mg tablet 12.5 mg PO DAILY RF: 0 epinephrine 0.3 MG/0.3 ML auto-injector 0.3 mg IM PRN PRN (Reason: Allergic Reaction) RF: 0 [place] Progesterone 1 dose PO DAILY RF: 0 Referrals: Graham Shah MD [Primary Care Provider] - Teresita Chicas PA-C [Advanced Screener Operator] -
[2019-02-12 13:42] LABS: Troponin I < 0.012 ng/mL (0.01-0.034)
[2019-02-12 14:00] VITALS: BP 138/87; PULSE 68; RESP 12
--- NOTE | 2019-02-12 14:13 | DI.US.S_ITS ---
PROCEDURE: US CHEST COMPARISON: [facility], CR, XR CHEST 1V, 02/12/2019, 13:23. INDICATIONS: full below left breast w/ standing, painful, hx reduction'11 FINDINGS: Targeted sonographic imaging of the left anterior chest was performed to evaluate for a site of the patient's area of fullness along the inferior margin of the left breast, status post breast reduction. No soft tissue mass or loculated fluid collection is identified. No suspicious soft tissue abnormalities are evident. IMPRESSION: No focal abnormalities are evident on the anterior anterior left chest at the site of the patient's fullness. There are no fluid collections or masses. Dictated by: Agus Montaño M.D. on 02/12/2019 at 14:51 Approved by: Agus Montaño M.D. on 02/12/2019 at 14:56
[2019-02-12 15:00] VITALS: BP 127/80; PULSE 70; RESP 13
[2019-02-12 16:00] VITALS: BP 123/85; PULSE 77; RESP 20
== END 2019-02-12 17:10 | disposition home or self-care (01) ==
PROVIDERS: Emergency Provider Emergency Medicine; PCP Family Medicine
DX: R07.89 Other chest pain (principal); R17 Unspecified jaundice; R91.1 Solitary pulmonary nodule; R11.0 Nausea; R10.9 Unspecified abdominal pain; K92.1 Melena; R06.00 Dyspnea, unspecified; R10.12 Left upper quadrant pain; R53.83 Other fatigue
CPT/HCPCS: 36591; 71045; 71046; 74177; 76604; 80053; 81003; 82550; 83690; 84484; 85025; 85379; 85610; 85730; 93005; 96361; 96374; 99284; 99285; J2270; Q9967

== ENCOUNTER 2019-05-30 21:41 | Emergency (ER) | payer OTHER, SELFPAY ==
[2019-05-30 21:48] VITALS: BP 151/79; PULSE 94; RESP 16; O2SAT 97
--- NOTE | 2019-05-30 21:57 | ED.WOUNDLAC ---
HPI - Wound/Laceration General Chief Complaint: Wound/Laceration Stated Complaint: RIGHT HAND SMALL FINGER INJURY Time Seen by Provider: 05/30/19 21:49 Source: patient Mode of arrival: Ambulatory History of Present Illness HPI narrative: Patient is a 44-year-old female who presents with right pinky laceration. 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 This happened at 1:00 p.m. it is a small laceration she applied a bandage in even Super glue to make it stop bleeding however it has not stopped bleeding. She has no numbness or tingling. She is not on any anti-platelet or anticoagulation medication. Tetanus up to date,. Onset (ago): hour(s) Related Data Home Medications Medication Instructions Recorded Confirmed hydrochlorothiazide 25 mg tablet 12.5 mg PO DAILY 02/11/19 02/17/19 [place] Progesterone 1 dose PO DAILY 02/12/19 02/17/19 epinephrine 0.3 mg IM PRN PRN 02/12/19 02/17/19 Previous Rx's Medication Instructions Recorded bupropion HCl 300 mg 24 hr tablet, 300 mg PO QAM #90 tab 08/20/18 extended release hydrocodone-acetaminophen [[place]] 1 tab PO QID PRN #10 tab 02/12/19 Allergies Allergy/AdvReac Type Severity Reaction Status Date / Time clarithromycin [From BIAXIN] Allergy Intermediate welts/hives Verified 02/17/19 11:37 Review of Systems Review of Systems Narrative: GENERAL: Denies chills,fever HEENT: Denies throat pain RESPIRATORY: Denies dyspnea, cough, wheezing CARDIOVASCULAR: Denies chest pain, palpitations GASTROINTESTINAL: Denies nausea, vomiting MUSCULOSKELETAL: Denies extremity pain, injury SKIN: See HPI NEUROLOGIC: Denies weakness, dizziness, headache, numbness 8 point review of systems is negative except for those stated above and HPI Patient History Medical History Asthma (Chronic ~1989) Chicken pox (Resolved ~1979) Endometriosis (Chronic ~1989) Gluten intolerance (Chronic ~2007) Hypertension (Chronic ~1991) Thoracic outlet syndrome (Chronic ~1991) Surgical History History of hysterectomy (Resolved ~04/2001) History of laparoscopy (Resolved) Hx of removal of ovary (Resolved ~08/2002) Status post breast reduction (Resolved ~07/2010) Surgical procedure planned (Resolved ~02/1998) Family History Father Hyperlipidemia Mother Diabetes mellitus Hypertension Grandfather Stroke Grandmother Diabetes mellitus Hypertension Stroke Grandfather Cancer Grandmother History of emphysema Social History Smoking Status: Never smoker second hand exposure: No alcohol intake: current (scotch a few times a week) substance use type: marijuana (I smoke marijuana daily due to discomfort) alcohol intake frequency: a few times a week Substance Use Type: marijuana Exam Initial Vital Signs Initial Vital Signs: Vital Signs Pulse Rate 94 H 05/30/19 21:48 Respiratory Rate 16 05/30/19 21:48 Blood Pressure 151/79 H 05/30/19 21:48 Pulse Oximetry 97 05/30/19 21:48 GENERAL: Well-appearing, well-nourished and in no acute distress. CARDIOVASCULAR: peripheral pulses in tact, cap refill <2 sec RESPIRATORY: No respiratory distress, speaks in full sentences without difficulty EXTREMITIES: Normal range of motion, no clubbing or edema. Neurovascularly intact NEUROLOGICAL: Cranial nerves II through XII grossly intact. Normal gait and speech. SKIN: 1 cm laceration right pinky palmar side. no super glue noted Procedures Laceration Repair Laceration 1: Site: hand (Pinky finger) Side (If applicable): right Size (cm): 1 Description: linear Depth: simple, single layer Local Anesthetic: lidocaine 1% Amount of anesthesia used (mL): 1 Pre-repair: wound explored Skin layer closed with: nylon Size (cm): 5-0 Number of sutures: 1 Course Orders Ordered: Discontinued Medications Lidocaine HCl (Xylocaine 1% (Pf)) 2 ml SUBCUT NOW ONE Stop: 05/30/19 21:58 Vital Signs Vital signs: Vital Signs - 8 hr 05/30/19 21:48 Pulse Rate 94 H Respiratory Rate 16 Blood Pressure 151/79 H Pulse Oximetry 97 Discharge Plan Departure Patient Disposition: Home Clinical Impression: Laceration of right little finger Qualifiers: Encounter type: initial encounter Damage to nail status: without damage Foreign body presence: without foreign body Qualified Code(s): S61.216A - Laceration without foreign body of right little finger without damage to nail, initial encounter Discharge Date/Time: 05/30/19 22:24 Instructions: DI for Laceration Repair Activity Restrictions/Additional Instructions: 1. Have your suture removed in 5-7 days, you may go to walk-in clinic, return to the ER or call your primary care physician. 2. No soaking in water including dishes, bathtubs, Lakes, swimming pools etc 3. Signs of infection include, but not limited to, increased redness, increased swelling, increased pain, fever and purulent drainage, if the symptoms should arise, you may need an antibiotic and you should have a reevaluation either by your primary care provider or by the emergency department. Prescriptions: No Action bupropion HCl [Wellbutrin XL] 300 mg tablet extended release 24 hr 300 mg PO QAM Qty: 90 RF: 3 hydrochlorothiazide 25 mg tablet 12.5 mg PO DAILY RF: 0 epinephrine 0.3 MG/0.3 ML auto-injector 0.3 mg IM PRN PRN (Reason: Allergic Reaction) RF: 0 [place] Progesterone 1 dose PO DAILY RF: 0 hydrocodone-acetaminophen [[place]] 5-325 mg tablet 1 tab PO QID PRN (Reason: pain) Qty: 10 RF: 0 Referrals: Graham Shah MD [Primary Care Provider] -
--- NOTE | 2019-05-30 22:23 | PC.NURSE ---
Sutures and wound care performed by Dr. Mariano. Pt tolerated well. Wound cleansed and bandaid applied. Pt to have sutures removed in 5-7 days, verbalizes understanding.
== END 2019-05-30 22:24 | disposition home or self-care (01) ==
PROVIDERS: Emergency Provider Emergency Medicine; PCP Family Medicine
DX: S61.216A Laceration without foreign body of right little finger without damage to nail, initial encounter (principal); W26.8XXA Contact with other sharp object(s), not elsewhere classified, initial encounter; Y99.0 Civilian activity done for income or pay
CPT/HCPCS: 12001; 99283

== ENCOUNTER → 2020-03-15 16:25 | Outpatient (CLI) | payer OTHER, SELFPAY ==
[2020-03-15 17:29] LABS: Add Manual Diff / Slide Review NO; Basophils Absolute Auto 100 /uL (0-100); Basophils Percent Auto 0.7 % (0-2); Eosinophils Absolute Auto 100 /uL (0-450); Eosinophils Percent Auto 1.4 % (2-4); Hematocrit 41.7 % (36-46); Hemoglobin 13.9 g/dL (12.0-16.0); Lymphocytes Absolute Auto 2300 /uL (1100-4500); Lymphocytes Percent Auto 30.1 % (25-40); Mean Corpuscular HGB Conc 33.4 % (30-36); Mean Corpuscular Hemoglobin 31.1 PG (26-34); Monocytes Absolute Auto 500 /uL (0-900); Monocytes Percent Auto 6.7 % (3-14); Neutrophils Absolute Auto 4600 /uL (1500-7000); Neutrophils Percent Auto 61.1 % (50-75); Platelet Count 295 X10^3/uL (150-400); Red Blood Cell Count 4.48 X10^6/uL (4.0-5.2); Red Cell Distribution Width 12.9 % (11.6-14.8); White Blood Cell Count 7.6 X10^3/uL (4.5-11.0)
[2020-03-15 18:29] LABS: Alanine Aminotransferase 18 IU/L (<35); Albumin 4.6 g/dL (3.5-5.0); Albumin Globulin Ratio 1.6 (1.0-2.8); Alkaline Phosphatase 76 U/L (38-126); Amylase 74 U/L (30-110); Aspartate Aminotransferase 27 IU/L (14-36); BUN Creatinine Ratio 23.2 (6-22); Blood Urea Nitrogen 19 mg/dL (7-17); Carbon Dioxide 31 mmol/L (22-32); Chloride 98 mmol/L (98-107); Cholesterol 187 mg/dL (140-199); Estimated Glomerular Filt Rate > 60.0 mL/min (>60); Globulin 2.9 g/dL (1.7-4.1); Glucose 83 mg/dL (70-100); HDL Cholesterol 92 mg/dL (40-60); HEMOLYSIS < 15 (0-50); LDL Cholesterol Calculated 81 mg/dL (<100); Lipase 65 U/L (23-300); Potassium 4.4 mmol/L (3.4-5.1); Sodium 136 mmol/L (137-145); Total Protein 7.5 g/dL (6.3-8.2); Triglycerides 72 mg/dL (35-150)
[2020-03-26 14:22] LABS: H pylori Breath Test NEGATIVE
== END ==
PROVIDERS: PCP Family Medicine; Referring Provider Family Medicine; Visit Provider Family Medicine
DX: I10 Essential (primary) hypertension (principal); R10.9 Unspecified abdominal pain
CPT/HCPCS: 36415; 80053; 80061; 82150; 83013; 83690; 84443; 85025

== ENCOUNTER → 2020-03-17 10:20 | Outpatient (CLI) | payer OTHER, SELFPAY ==
--- NOTE | 2020-03-17 10:22 | DI.US.S_ITS ---
PROCEDURE: US ABDOMEN COMPLETE INDICATIONS: ABDOMINAL PAIN TECHNIQUE: Real-time scanning was performed of the abdominal and retroperitoneal organs, with image documentation. COMPARISON: None. FINDINGS: Liver: The liver demonstrates prominent size. The liver demonstrates generalized increased echogenicity. This decreases ultrasound sensitivity for detection of hepatic masses. The main portal vein is mildly prominent at 1.8 cm. Normal appearing hepatopetal flow can be seen. Gallbladder: No findings of gallstones or sludge are seen. The gallbladder wall is not thickened, measuring 3 mm or less. No specific pericholecystic fluid is seen. The sonographic Abbott sign is negative. Biliary ducts: Intrahepatic bile ducts are non-dilated. Extrahepatic bile duct caliber measures 7 mm. Normal is 6-7 mm or less in diameter, or 10 mm or less post-cholecystectomy. Pancreas: Visualized portions of the pancreas are sonographically normal. Spleen: Spleen is normal in size and homogeneous in echotexture. Kidneys: Kidneys are normal in size and echotexture. Right kidney measures 10.6 cm long; left kidney measures 10.3 cm long. No hydronephrosis or nephrolithiasis. No solid masses. Aorta: Visualized aorta is normal in caliber at less than 3 cm. Iliacs: Not seen. IVC: Intrahepatic inferior vena cava is patent. Miscellaneous: No free abdominal fluid. IMPRESSION: Normal appearing gallbladder. The common bile duct measures at the upper limits of normal at 7 mm. Enlarged, echogenic liver. Slightly enlarged portal vein, with normal appearing, hepatopetal flow seen within it. Dictated by: Kike Rodriguez M.D. on 03/17/2020 at 10:42 Approved by: Kike Rodriguez M.D. on 03/17/2020 at 10:44
== END ==
PROVIDERS: PCP Family Medicine; Referring Provider Family Medicine; Visit Provider Family Medicine
DX: R10.9 Unspecified abdominal pain (principal); R16.0 Hepatomegaly, not elsewhere classified; I87.8 Other specified disorders of veins
CPT/HCPCS: 76700

== ENCOUNTER 2020-03-22 05:12 | Emergency (ER) | payer OTHER, SELFPAY ==
[2020-03-22] VITALS (7 sets, daily range): BP systolic 146–173; BP diastolic 80–86; PULSE 65–98; RESP 18–20; TEMP 36.7; O2SAT 89–100; BMI 22.8
--- NOTE | 2020-03-22 05:20 | ED_ITS ---
HPI - Abdominal Pain General Chief Complaint: Abdominal Pain Stated Complaint: massive pain right side and back, nausea Time Seen by Provider: 03/22/20 05:12 Source: patient Mode of arrival: Ambulatory Limitations: no limitations History of Present Illness HPI narrative: 44-year-old female nonsmoker, occasional drinker with history of hypertension presents with a chief complaint of severe, stabbing epigastric pain with some radiation to her right flank and back. She states the pain is worse with motion and with deep breaths and it makes her feel short of breath. She has been suffering with these symptoms off and on for quite some time and recently saw her primary care provider who ordered labs and ultrasound. The ultrasound was unremarkable. She states that she frequently has these symptoms late in the night or early in the morning and often times it seems to get better over the course of the day. She denies recent travel or injury. She has had no fever or chills. She has nausea and vomiting which seems to be worse when the pain is flaring up. She does not take any acid reducers and denies having had an EGD before. MD complaint: abdominal pain Onset (ago): minute(s) Pain Consistency: intermittent Location: epigastric Severity: severe Quality: stabbing and sharp Radiation: R flank, back and chest Relieving factors: nothing Exacerbating factors: eating, vomiting and movement Related Data Home Medications Medication Instructions Recorded Confirmed epinephrine 0.3 mg IM PRN PRN 02/12/19 03/15/20 hormone replacement therapy- PO 02/24/20 03/15/20 progesterone/estrogen Previous Rx's Medication Instructions Recorded alprazolam 0.25 mg tablet See Rx Instructions PO QID PRN #30 02/24/20 tab bupropion HCl 300 mg 24 hr tablet, 300 mg PO QAM #90 tab 02/24/20 extended release hydrochlorothiazide 25 mg tablet 12.5 mg PO DAILY #45 tab 02/24/20 pantoprazole [Protonix] 40 mg PO DAILY #30 tab 03/22/20 Allergies Allergy/AdvReac Type Severity Reaction Status Date / Time clarithromycin [From BIAXIN] Allergy Intermediate welts/hives Verified 03/15/20 15:32 Review of Systems Constitutional Constitutional: Denies chills, Denies fatigue, Denies fever(s), Denies frequent falls, Denies lethargy and Denies weakness Eyes Eyes: Denies change in vision, Denies eye discharge, Denies irritation and Denies loss of vision ENT Ears, Nose, Mouth, and Throat: Denies change in voice, Denies dizziness, Denies neck pain, Denies sore throat and Denies throat swelling Cardiovascular Cardiovascular: Reports chest pain, Denies irregular heart rhythm, Denies lightheadedness, Denies palpitations, Denies dyspnea, Denies dyspnea on exertion and Denies orthopnea Respiratory Respiratory: Denies cough, Reports pain on inspiration, Denies dyspnea, Denies dyspnea on exertion and Denies wheezing Gastrointestinal Gastrointestinal: Reports abdominal pain, Denies change in bowel habits, Denies diarrhea, Denies nausea and Denies vomiting Musculoskeletal Musculoskeletal: Denies neck pain and Denies numbness Integumentary/Breasts Skin/Breast: Denies pruritus, Denies erythema, Denies rash and Denies wounds Neurologic Neurologic: Denies behavioral changes, Denies confusion, Denies dizziness, Denies frequent falls, Denies loss of vision, Denies numbness and Denies weakness Psychiatric Psychiatric: Reports anxiety, Denies behavioral changes, Denies confusion, Denies depression, Denies homicidal ideation and Denies suicidal ideation Endocrine Endocrine: Denies fatigue, Denies flushing and Denies palpitations Hematologic/Lymphatic Hematologic/Lymphatic: Denies easy bruising Allergic/Immunologic Allergic/Immunologic: Denies urticaria, Denies throat swelling and Denies wheezing Patient History Medical History Asthma (Chronic ~1989) Chicken pox (Resolved ~1979) Endometriosis (Chronic ~1989) Gluten intolerance (Chronic ~2007) Hypertension (Chronic ~1991) Thoracic outlet syndrome (Chronic ~1991) Surgical History History of hysterectomy (Resolved ~04/2001) History of laparoscopy (Resolved) Hx of removal of ovary (Resolved ~08/2002) Status post breast reduction (Resolved ~07/2010) Surgical procedure planned (Resolved ~02/1998) Family History Father Hyperlipidemia Mother Diabetes mellitus Hypertension Grandfather Stroke Grandmother Diabetes mellitus Hypertension Stroke Grandfather Cancer Grandmother History of emphysema Social History Smoking Status: Never smoker second hand exposure: No alcohol intake: current (scotch a few times a week) substance use type: marijuana (I smoke marijuana daily due to discomfort) Smoking Status: Never smoker alcohol intake frequency: a few times a week Substance Use Type: marijuana Exam Narrative Exam Narrative: GENERAL: [44] year old patient appears stated age. Well- nourished, well-developed patient, in obvious distress, crying in pain and clu tching her chest. Very anxious HEAD: Atraumatic. Normocephalic. EYES: Pupils equal round and reactive. Extraocular motions intact. No scleral icterus. No injection or drainage. ENT: Nose without bleeding, purulent drainage. Throat without erythema, tonsillar hypertrophy or exudate. Airway patent. NECK: Trachea midline. Non tender CARDIOVASCULAR: Regular rate and rhythm without murmurs, gallops, or rubs. RESPIRATORY: Clear to auscultation. Breath sounds equal bilaterally. No wheezes, rales, or rhonchi. GASTROINTESTINAL: Abdomen soft, severely tender in epigastrum, nondistended. EXTREMITIES: No edema or joint tenderness. BACK: Nontender without deformity or crepitance. No flank tenderness. NEURO: AOx3. SKIN: No rash or erythema of visible areas Initial Vital Signs Initial Vital Signs: Vital Signs Temperature 98.0 F 03/22/20 05:20 Pulse Rate 98 H 03/22/20 05:20 Respiratory Rate 20 03/22/20 05:20 Blood Pressure 160/80 H 03/22/20 05:20 Pulse Oximetry 98 03/22/20 05:20 Course Orders Ordered: ED Orders 03/22/20 EKG-12 Lead Stat 03/22/20 05:20 Complete Blood Count AUTO DIFF Stat Comprehensive Metabolic Panel Stat D Dimer Stat Lipase Stat Troponin & CK Cardiac Panel Stat 03/22/20 05:48 CT chest abd pel w con Stat Ondansetron HCl (Zofran) 4 mg IV Q4HR PRN PRN Reason: Nausea And Vomiting Last Admin: 03/22/20 05:33 Dose: 4 mg Documented by: HOANG Discontinued Medications Sodium Chloride (Normal Saline 0.9%) 1,000 mls @ 1,000 mls/hr IV BOLUS ONE Stop: 03/22/20 06:20 Last Admin: 09/07/20 05:29 Dose: 1,000 mls/hr Documented by: HOANG Lorazepam (Ativan) 1 mg IV NOW ONE Stop: 03/22/20 05:22 Last Admin: 03/22/20 05:30 Dose: 1 mg Documented by: HOANG Pantoprazole Sodium (Protonix) 40 mg IV NOW ONE Stop: 03/22/20 05:22 Last Admin: 03/22/20 05:33 Dose: 40 mg Documented by: HOANG Reevaluation(s) Reevaluation #1: patient feeling much better after Ativan, still having pain, but nausea and anxiety greatly improved Time: 06:06 Vital Signs Vital signs: Vital Signs - 8 hr 03/22/20 05:20 03/22/20 05:23 03/22/20 05:30 Temperature 98.0 F Pulse Rate 98 H 79 77 Respiratory Rate 20 Blood Pressure 160/80 H Pulse Oximetry 98 99 100 03/22/20 05:31 Temperature Pulse Rate 73 Respiratory Rate Blood Pressure 173/86 H Pulse Oximetry 99 MDM - Abdominal Pain Lab Data Result diagrams: 03/22/20 05:20 03/22/20 05:20 Labs: Lab Results 03/22/20 03/22/20 03/22/20 Range/Units 05:20 05:20 05:20 WBC 6.7 (4.5-11.0) X10^3/uL RBC 4.72 (4.0-5.2) X10^6/uL Hgb 15.0 (12.0-16.0) g/dL Hct 43.9 (36-46) % MCV 93.0 (80-100) fL MCH 31.7 (26-34) PG MCHC 34.1 (30-36) % RDW 13.0 (11.6-14.8) % Plt Count 271 (150-400) X10^3/uL Neut % (Auto) 53.1 (50-75) % Lymph % (Auto) 35.6 (25-40) % [place] % (Auto) 8.6 (3-14) % Eos % (Auto) 1.7 L (2-4) % Baso % (Auto) 1.0 (0-2) % Neut # (Auto) 3600 (5089-1141) /uL Lymph # (Auto) 2400 (2353-6054) /uL [place] # (Auto) 600 (0-900) /uL Eos # (Auto) 100 (0-450) /uL Baso # (Auto) 100 (0-100) /uL D-Dimer < 200 (<230) ng/mL Sodium 139 (137-145) mmol/L Potassium 4.3 (3.4-5.1) mmol/L Chloride 104 (98-107) mmol/L Carbon Dioxide 28 (22-32) mmol/L BUN 17 (7-17) mg/dL Creatinine 0.71 (0.52-1.04) mg/dL Estimated GFR > 60.0 (>60) mL/min BUN/Creatinine Ratio 23.9 H (6-22) Glucose 99 (70-100) mg/dL Calcium 9.4 (8.4-10.2) mg/dL Total Bilirubin 1.3 (0.2-1.3) mg/dL AST 34 (14-36) IU/L ALT 25 (<35) IU/L Alkaline Phosphatase 71 (38-126) U/L Total Creatine Kinase 109 (30-135) U/L CK-MB (CK-2) 0.92 (<2.37) ng/mL CK-MB (CK-2) Rel Index 0.8 L (1.5-5.0) % Troponin I < 0.012 (0.01-0.034) ng/mL Total Protein 8.3 H (6.3-8.2) g/dL Albumin 4.7 (3.5-5.0) g/dL Globulin 3.6 (1.7-4.1) g/dL Albumin/Globulin Ratio 1.3 (1.0-2.8) Lipase 77 (23-300) U/L Imaging Data CT scan - chest: Radiologist's Impression: No acute or inflammatory abnormality Nonobstructing stone in the right kidney Sigmoid diverticulosis Discharge Plan Departure Patient Disposition: Home Clinical Impression: Acute epigastric pain Instructions: DI for Epigastric Pain Activity Restrictions/Additional Instructions: *You have been diagnosed with [ Epigastric pain. Your labs and images are very reassuring. ] *What to do: *Take medications as directed. Your prescription was sent to [facility]. * Also Avoid caffeine, alcohol, nicotine, and spicy foods. *Follow up with your primary care provider in 2-3 days, call for an appointment. Let them know you were seen in the Emergency Department and that we ask that you be seen in follow up. It may be reasonable to consider asking him about getting a referral for an endoscopy. *Return to ER if you should have any new, worsening or concerning symptoms Prescriptions: New pantoprazole [Protonix] 40 mg tablet,delayed release (DR/EC) 40 mg PO DAILY Qty: 30 RF: 0 No Action hormone replacement therapy- progesterone/estrogen PO RF: 0 bupropion HCl [Wellbutrin XL] 300 mg tablet extended release 24 hr 300 mg PO QAM Qty: 90 RF: 3 hydrochlorothiazide 25 mg tablet 12.5 mg PO DAILY Qty: 45 RF: 3 alprazolam [Xanax] 0.25 mg tablet See Rx Instructions PO QID PRN (Reason: anxiety) Qty: 30 RF: 0 epinephrine 0.3 MG/0.3 ML auto-injector 0.3 mg IM PRN PRN (Reason: Allergic Reaction) RF: 0 Referrals: Graham Shah MD [Primary Care Provider] -
[2020-03-22] MEDS: SODIUM CHLORIDE 0.9% 1,000 ML 1000 ML IV (05:29)
[2020-03-22] MEDS: LORazepam 2 MG/ML INJ 1 MG IV (05:30)
[2020-03-22] MEDS: PANTOPRAZOLE 40 MG VIAL IV (05:33)
[2020-03-22] MEDS: ONDANSETRON 4 MG/2 ML INJ IV (05:33)
[2020-03-22 05:37] LABS: Add Manual Diff / Slide Review NO; Basophils Absolute Auto 100 /uL (0-100); Eosinophils Absolute Auto 100 /uL (0-450); Eosinophils Percent Auto 1.7 % (2-4); Hematocrit 43.9 % (36-46); Lymphocytes Absolute Auto 2400 /uL (1100-4500); Lymphocytes Percent Auto 35.6 % (25-40); Mean Corpuscular HGB Conc 34.1 % (30-36); Mean Corpuscular Hemoglobin 31.7 PG (26-34); Monocytes Absolute Auto 600 /uL (0-900); Monocytes Percent Auto 8.6 % (3-14); Neutrophils Absolute Auto 3600 /uL (1500-7000); Neutrophils Percent Auto 53.1 % (50-75); Platelet Count 271 X10^3/uL (150-400); Red Blood Cell Count 4.72 X10^6/uL (4.0-5.2); White Blood Cell Count 6.7 X10^3/uL (4.5-11.0)
[2020-03-22 05:41] LABS: Alanine Aminotransferase 25 IU/L (<35); Albumin 4.7 g/dL (3.5-5.0); Albumin Globulin Ratio 1.3 (1.0-2.8); Alkaline Phosphatase 71 U/L (38-126); Aspartate Aminotransferase 34 IU/L (14-36); BUN Creatinine Ratio 23.9 (6-22); Bilirubin Total 1.3 mg/dL (0.2-1.3); Blood Urea Nitrogen 17 mg/dL (7-17); Calcium 9.4 mg/dL (8.4-10.2); Carbon Dioxide 28 mmol/L (22-32); Chloride 104 mmol/L (98-107); Creatine Kinase 109 U/L (30-135); Estimated Glomerular Filt Rate > 60.0 mL/min (>60); Globulin 3.6 g/dL (1.7-4.1); Glucose 99 mg/dL (70-100); Lipase 77 U/L (23-300); Potassium 4.3 mmol/L (3.4-5.1); Sodium 139 mmol/L (137-145); Total Protein 8.3 g/dL (6.3-8.2)
[2020-03-22 05:48] LABS: HEMOLYSIS 98 (0-50)
--- NOTE | 2020-03-22 05:48 | DI.CT.S_ITS ---
PROCEDURE: CT CHEST ABD PEL W CON INDICATIONS: severe epigastric pain with radiation to back TECHNIQUE: After the administration of intravenous contrast, 5 mm thick sections acquired from the lung apices to the symphysis. 5 mm coronal and sagittal reformats were performed, with additional 7 mm MIP reformats through the lungs. For radiation dose reduction, the following was used: automated exposure control, adjustment of mA and/or kV according to patient size. COMPARISON: , US, US ABDOMEN COMPLETE, 03/17/2020, 10:47. , CT, CT ABDOMEN PELVIS W CON, 02/12/2019, 8:26. FINDINGS: Image quality: Excellent. CHEST: Lungs and pleura: No acute airspace opacities. Within the subpleural left lower lobe on series 3, image 202, there is a 3 mm nodular focus seen. Within the right lower lobe on series 3, image 188, there is a 6 mm calcified focus seen, which is attributed to a benign granuloma. No pleural effusions or pneumothorax. Central and peripheral airways appear patent and normal in caliber. Mediastinum: Heart size is normal. No pericardial effusion. No mediastinal or hilar adenopathy by size criteria. Thoracic aorta and central pulmonary arteries are normal in size. No findings of aortic dissection are seen. Esophagus is normal in caliber. No hiatal hernia. Chest wall: No axillary or supraclavicular adenopathy by size criteria. Thyroid gland demonstrates no significant abnormality. ABDOMEN: Solid organs: Liver is prominent in size. No focal suspicious liver abnormalities are seen. Incidental note is made of focal fatty infiltration adjacent to the falciform ligament, which is not regarded to be pathologic. Gallbladder wall is not thickened. Biliary system is non dilated. Pancreas enhances normally. Spleen is normal in size and enhancement. No adrenal nodules. Kidneys demonstrate normal size and enhancement, without hydronephrosis. There is a tiny 2 mm nonobstructing right-sided kidney stone seen, as on series 2, image 75. Peritoneum and bowel: Bowel loops demonstrate normal wall thickness and caliber. No free fluid or air. Minimal sigmoid diverticulosis is seen, without diverticulitis. Nodes and vessels: No retroperitoneal or mesenteric adenopathy by size criteria. Aorta and inferior vena cava are normal in size. Negative for aortic dissection. Miscellaneous: No ventral hernias. PELVIS: Genitourinary: Bladder wall thickness is normal. No uterus is seen and is presumed to have been previously removed. No adnexal masses can be seen on either side. Miscellaneous: No inguinal hernias or adenopathy. Left pelvic clips are seen. Bones: No suspicious bony lesions. No vertebral body compression fractures. IMPRESSION: Negative study. Specifically, no acute aortic pathology is seen. Stable lung base nodules are seen, which are regarded to be benign. No specific imaging follow-up is recommended, although attention should be paid to these foci on any future follow-up studies. Incidental note is made of: Enlarged liver 2 mm nonobstructing right-sided kidney stone Hysterectomy Left pelvic clips Diverticulosis, without active diverticulitis Note: No significant discrepancy from the preliminary report. Dictated by: Kike Rodriguez M.D. on 03/22/2020 at 7:24 Approved by: Kike Rodriguez M.D. on 03/22/2020 at 7:31
[2020-03-22 05:53] LABS: Troponin I < 0.012 ng/mL (0.01-0.034)
[2020-03-22 05:55] LABS: D Dimer < 200 ng/mL (<230)
[2020-03-22 05:56] LABS: CKMB % Relative Index 0.8 % (1.5-5.0); Creatine Kinase MB 0.92 ng/mL (<2.37)
== END 2020-03-22 07:00 | disposition home or self-care (01) ==
PROVIDERS: Emergency Provider Emergency Medicine; PCP Family Medicine
DX: R10.13 Epigastric pain (principal); I10 Essential (primary) hypertension; R07.9 Chest pain, unspecified; F41.9 Anxiety disorder, unspecified
CPT/HCPCS: 36415; 71260; 74177; 80053; 82550; 82553; 83690; 84484; 85025; 85379; 93005; 96361; 96374; 96375; 99284; C9113; J2060; J2405; Q9967

== ENCOUNTER → 2020-05-05 08:49 | Outpatient (CLI) | payer OTHER, SELFPAY ==
--- NOTE | 2020-05-05 08:49 | DI.NM.S_ITS ---
PROCEDURE: NM HIDA WITH CCK PHARMACEUTICAL: 5.5 mCi Tc-99m mebrofenin IV; 1.4 mcg CCK IV. INDICATIONS: biliary colic, no gall stones on US or CT TECHNIQUE: Following intravenous administration of Tc-99m mebrofenin, sequential anterior abdominal images were obtained. To evaluate the contractile response of the gallbladder in response to Cholecystokinin (CCK), sincalide (0.02 ?g/kg) was administered by slow intravenous infusion approximately 60 minutes after the administration of the radiopharmaceutical. Sequential imaging was continued for 30 minutes after the start of CCK infusion. Gallbladder ejection fraction was calculated. COMPARISON: [facility], US, US ABDOMEN COMPLETE, 03/17/2020, 10:47. [facility], CT, CT CHEST ABD PEL W CON, 03/22/2020, 5:52. FINDINGS: Biliary scan: There is normal tracer uptake and excretion by the liver. There is normal visualization of the intrahepatic ducts, common bile duct, and gallbladder. There is normal tracer transit into the duodenum. CCK stimulation: There is normal contractile response of the gallbladder to CCK infusion. The calculated gallbladder ejection fraction is 65%; normal values are above 35%. It has been shown that any patient abdominal pain after CCK administration is related to the rate of CCK injection, rather than to any underlying gallbladder disease (Clinical Nuclear Medicine 2012; 37: 63-70. Journal of Nuclear Medicine 2014; 55: 1-9). IMPRESSION: 1. Normal filling of gallbladder. No evidence for acute cholecystitis. 2. Normal contractile response of gallbladder to CCK stimulation. Dictated by: Vance Olivarez M.D. on 05/05/2020 at 11:38 Approved by: Vance Olivarez M.D. on 05/05/2020 at 11:39
== END ==
PROVIDERS: PCP Family Medicine; Referring Provider Family Medicine; Visit Provider Surgery
DX: Z01.812 Encounter for preprocedural laboratory examination (principal); Z20.828 Contact with and (suspected) exposure to other viral communicable diseases; R10.11 Right upper quadrant pain; K80.50 Calculus of bile duct without cholangitis or cholecystitis without obstruction
CPT/HCPCS: 78227; 87635; A9537; J2805

== ENCOUNTER → 2020-05-05 16:06 | Outpatient (CLI) | payer OTHER, SELFPAY ==
[2020-05-05 17:49] LABS: COVID19 -Nasal RAPID Negative (Negative)
== END ==
PROVIDERS: PCP Family Medicine; Visit Provider Family Medicine
DX: Z01.812 Encounter for preprocedural laboratory examination (principal); Z20.828 Contact with and (suspected) exposure to other viral communicable diseases
CPT/HCPCS: 87635

== ENCOUNTER 2020-05-07 06:45 | Day surgery (SDC) | payer OTHER, SELFPAY ==
--- NOTE | 2020-05-07 | PATH_ITS ---
[facility] Accession Number: [id number] . 01 Material submitted: . colon - RANDOM COLON TISSUE BIOPSIES . 02 Diagnosis: Random Colon, Tissue Biopsies: Colonic mucosa with no diagnostic abnormality. Negative for active, chronic, and microscopic colitis. Negative for dysplasia and malignancy. . MRV 05/11/2020 1357 Local . 02 Electronically signed: . Melida Elaine MD, Pathologist NPI- [id number] . 01 Gross description: . The specimen is received in formalin, labeled random colon, and consists of multiple cheek fragments of soft tissue measuring 1.0 x 0.8 x 0.2 cm in aggregate. The specimen is filtered and entirely submitted in cassette A1. ([id number]) /FRR 05/08/2020 1755 Local . 02 Pathologist provided ICD-10: R10.9 . 02 CPT . 325275 Performed at: 01 [facility] [address] [id number] MD Pipe Galarza MD Phone: [phone] Performed at: 02 [facility] [address] [place], [place] [id number] MD Melida Elaine MD Phone: [phone]
[2020-05-07 07:17] VITALS: BP 121/79; PULSE 16; RESP 76; TEMP 36.6; O2SAT 99; BMI 22.8
[2020-05-07] MEDS: SODIUM CHLORIDE 0.9% 1,000 ML 200 ML IV (07:17)
--- NOTE | 2020-05-07 07:40 | PM.PREOP ---
Pre-operative Note COVID-19 COVID-19 status: Negative Result date/Date tested (Pos, Neg/Pending): 05/05/20 Interval Note History & Physical reviewed/Exam performed by Physician: Yes Changes to H&P: No ASA Class (for procedural sedation): II
[2020-05-07] MEDS: ONDANSETRON 4 MG/2 ML INJ IV (07:45)
--- NOTE | 2020-05-07 07:47 | PM.OP.ENDO ---
Operative Date/Time/Diagnoses Date of procedure: 05/07/20 Time of procedure: 07:48 Pre-op diagnosis: change in bowel habits Procedure & Clinicians Study performed: Colonoscopy Procedural sedation performed by the endoscopist Random biopsies of the colonic mucosa throughout the colon Same procedure as scheduled: Yes Indications: Change in bowel habits, family history of colorectal cancer Surgeon: Kiesha De La Vega Procedure Notes SCOAP/Timeout: Performed Procedure in detail: The patient was brought to the room and placed in left lateral decubitus position with all bony prominences padded. A time-out was performed and then the patient was given procedural sedation starting with [4] mg of Versed and [100] mcg of fentanyl. A total of 14 mg of Versed and 350 micro g of fentanyl were required for the entire procedure. Vitals were monitored throughout the procedure and remained stable. Once adequately sedated, the procedure was begun. A rectal exam was performed revealing [no abnormalities]. The colonoscope was then introduced to the rectum and advanced to the cecum in the usual fashion. The colon was quite tortuous and required multiple maneuvers including using the stiffener, and counter pressure on the abdominal wall in order to safely reach the cecum. The sigmoid colon was thickened and tortuous with many diverticula and false passages. There was stool impacted in 1 diverticula in the sigmoid which could not be flushed out. A picture was taken. []The cecum was identified by the appendiceal orifice, the mucosal tri-fold, and the ileocecal valve. The scope was then retracted while rotating side to side and examining each mucosal fold. No polyps or masses were seen. Random biopsies were taken throughout the colon to rule out microscopic colitis. [] At the conclusion of the procedure retroflexion was performed and [small grade 1-2 internal hemorrhoids without stigmata of bleeding were seen]. The scope was then withdrawn from the rectum the procedure was concluded. The patient tolerated the procedure well and was transferred to the PACU in stable condition. Scope withdrawal time: 10 Sedation minutes: 33 Findings: diverticulosis Specimen(s): other (Random biopsies throughout the colon) Complications: none Impression: Diverticulosis throughout the colon, most significantly in the descending and sigmoid colon, with impacted stool 1 diverticula within the sigmoid. Very tortuous colon Post-procedure Recommendations: Colonscopy in 10 years and Other recommendation (Further recommendations pending biopsy results) Follow up: as needed Disposition: PACU
[2020-05-07] MEDS: MIDAZOLAM 5 MG/5 ML VIAL IV (07:54)
[2020-05-07] MEDS: fentaNYL 250 MCG/5 ML INJ IV (07:54)
[2020-05-07 08:27] VITALS: BP 149/88; PULSE 81; RESP 10; TEMP 36.6; O2SAT 100
[2020-05-07 08:32] VITALS: BP 129/88; PULSE 70; RESP 15; TEMP 36.1; O2SAT 100
[2020-05-07 08:36] VITALS: BP 125/72; PULSE 74; RESP 16; TEMP 36.2; O2SAT 100
[2020-05-07 08:41] VITALS: BP 159/96; PULSE 70; RESP 12; TEMP 36.2; O2SAT 100
[2020-05-07 08:43] VITALS: BP 144/98; PULSE 72; RESP 15; TEMP 36.3; O2SAT 100
== END 2020-05-07 09:30 | disposition home or self-care (01) ==
PROVIDERS: PCP Family Medicine; Referring Provider Family Medicine; Visit Provider Surgery
PROC: 0DJD8ZZ Inspection of Lower Intestinal Tract, Via Natural or Artificial Opening Endoscopic (ICD-10-PCS; CPT 45378; principal; 2020-05-07 07:45)
DX: K57.30 Diverticulosis of large intestine without perforation or abscess without bleeding (principal); R19.4 Change in bowel habit; K64.0 First degree hemorrhoids; J45.909 Unspecified asthma, uncomplicated; I10 Essential (primary) hypertension
CPT/HCPCS: 45380; 99152; 99153; J2250; J2405; J3010

== ENCOUNTER → 2020-05-11 13:44 | Outpatient (CLI) | payer OTHER, SELFPAY ==
--- NOTE | 2020-05-11 13:51 | DI.RAD.S_ITS ---
PROCEDURE: XR ACUTE ABDOMEN SERIES INDICATIONS: Pain/fever post colonoscopy rule out free air TECHNIQUE: One view chest and two views of the abdomen were acquired. COMPARISON: [facility], CT, CT CHEST ABD PEL W CON, 03/22/2020, 5:52. FINDINGS: Surgical changes and devices: None. Chest: Lungs are clear. Heart size is normal. No pleural effusions. No pneumoperitoneum. Abdomen: Bowel gas pattern is normal. No suspicious calcifications. Visualized solid organ contours appear normal. Colonic obstipation. Bones: No suspicious bony lesions. IMPRESSION: Colonic obstipation, no sign of intestinal obstruction or perforation. Several surgical clips right lower quadrant suggest prior appendectomy. Dictated by: Jose Alberto Langley M.D. on 05/11/2020 at 14:21 Approved by: Jose Alberto Langley M.D. on 05/11/2020 at 14:22
[2020-05-11 14:38] LABS: Add Manual Diff / Slide Review NO; Basophils Absolute Auto 0 /uL (0-100); Basophils Percent Auto 0.6 % (0-2); Eosinophils Absolute Auto 0 /uL (0-450); Eosinophils Percent Auto 0.7 % (2-4); Hematocrit 43.9 % (36-46); Hemoglobin 14.4 g/dL (12.0-16.0); Lymphocytes Absolute Auto 1900 /uL (1100-4500); Lymphocytes Percent Auto 29.4 % (25-40); Mean Corpuscular HGB Conc 32.9 % (30-36); Mean Corpuscular Hemoglobin 30.6 PG (26-34); Mean Corpuscular Volume 93.1 fL (80-100); Monocytes Absolute Auto 400 /uL (0-900); Monocytes Percent Auto 6.9 % (3-14); Neutrophils Absolute Auto 4000 /uL (1500-7000); Neutrophils Percent Auto 62.4 % (50-75); Platelet Count 254 X10^3/uL (150-400); Red Blood Cell Count 4.71 X10^6/uL (4.0-5.2); Red Cell Distribution Width 12.9 % (11.6-14.8); White Blood Cell Count 6.5 X10^3/uL (4.5-11.0)
[2020-05-11 14:53] LABS: Alanine Aminotransferase 23 IU/L (<35); Albumin 4.7 g/dL (3.5-5.0); Albumin Globulin Ratio 1.5 (1.0-2.8); Alkaline Phosphatase 80 U/L (38-126); Aspartate Aminotransferase 27 IU/L (14-36); BUN Creatinine Ratio 17.9 (6-22); Blood Urea Nitrogen 14 mg/dL (7-17); Calcium 9.6 mg/dL (8.4-10.2); Carbon Dioxide 35 mmol/L (22-32); Chloride 100 mmol/L (98-107); Estimated Glomerular Filt Rate > 60.0 mL/min (>60); Globulin 3.1 g/dL (1.7-4.1); Glucose 87 mg/dL (70-100); HEMOLYSIS < 15 (0-50); Potassium 3.8 mmol/L (3.4-5.1); Sodium 139 mmol/L (137-145); Total Protein 7.8 g/dL (6.3-8.2)
== END ==
PROVIDERS: PCP Family Medicine; Referring Provider Internal Medicine; Visit Provider Specialist
DX: R10.9 Unspecified abdominal pain (principal); R11.0 Nausea; R50.9 Fever, unspecified
CPT/HCPCS: 36415; 74022; 80053; 85025

== ENCOUNTER 2020-07-17 08:44 | Emergency (ER) | payer OTHER, SELFPAY ==
--- NOTE | 2020-07-17 08:48 | ED.MALEGU ---
HPI - Male Genitourinary General Stated complaint: BLOOD IN URINE/STOOL, HX GALLBLADDER ISSUES Time Seen by Provider: 07/17/20 08:47 Source: patient Mode of arrival: Ambulatory Limitations: no limitations History of Present Illness HPI Narrative: 45F former smoker with known gall bladder disease and planned endoscopy presents with the chief complaint of ongoing epigastric pain, blood in urine and blood with BMs over the past few days. She's had ongoing nausea and vomiting for much of the week. Related Data Home Medications Medication Instructions Recorded Confirmed hormone replacement therapy- 1 tab PO DAILY 02/24/20 07/02/20 progesterone/estrogen Probiotic 10,000 mmu cells PO DAILY 05/07/20 07/02/20 estradiol 10 mcg VAGINAL WEEKLY 05/07/20 07/02/20 Previous Rx's Medication Instructions Recorded bupropion HCl 300 mg 24 hr tablet, 300 mg PO QAM #90 tab 02/24/20 extended release hydrochlorothiazide 25 mg tablet 12.5 mg PO DAILY #45 tab 02/24/20 epinephrine 0.3 mg/0.3 mL 0.3 mg IM PRN PRN #1 each 03/31/20 injection, auto-injector pantoprazole 40 mg tablet,delayed 40 mg PO BID #60 tab 04/19/20 release ondansetron 4 mg PO Q8H PRN #20 tab 05/07/20 alprazolam 0.5 mg tablet 0.5 mg PO DAILY PRN #30 tab 06/23/20 Allergies Allergy/AdvReac Type Severity Reaction Status Date / Time clarithromycin [From BIAXIN] Allergy Intermediate welts/hives Verified 07/02/20 15:05 gluten AdvReac Cough Verified 07/02/20 15:05 lactase [From Dairy Aid] AdvReac Nausea Verified 07/02/20 15:05 sodium tripolyphosphate Allergy Severe Anaphylaxis Uncoded 07/02/20 15:05 Patient History Medical History (Updated 07/02/20 @ 16:25 by Kiesha De La Vega MD) Asthma (~1989) Chicken pox (~1979) Endometriosis (~1989) Gluten intolerance (~2007) Hypertension (~1991) Mitral valve prolapse Thoracic outlet syndrome (~1991) Surgical History History of hysterectomy (~04/2001) History of laparoscopy Hx of removal of ovary (~08/2002) Status post breast reduction (~07/2010) Surgical procedure planned (~02/1998) Family History Father Hyperlipidemia Mother Diabetes mellitus Hypertension Grandfather Stroke Grandmother Diabetes mellitus Hypertension Stroke Grandfather Cancer Grandmother History of emphysema Social History household members: spouse, family and children Smoking Status: Former smoker second hand exposure: No alcohol intake: current substance use type: marijuana Smoking Status: Former smoker alcohol intake frequency: a few times a week Substance Use Type: marijuana Course Orders Ordered: ED Orders 07/17/20 08:56 Complete Blood Count AUTO DIFF Stat Comprehensive Metabolic Panel Stat 07/17/20 08:58 Lipase Stat Sodium Chloride (Normal Saline 0.9%) 1,000 mls @ 1,000 mls/hr IV BOLUS ONE Stop: 07/17/20 09:55 Discontinued Medications Pantoprazole Sodium (Pantoprazole 40 Mg Vial) 40 mg IV NOW ONE Stop: 07/17/20 08:57 Discharge Plan Departure Prescriptions: No Action pantoprazole [Protonix] 40 mg tablet,delayed release (DR/EC) 40 mg PO BID Qty: 60 RF: 5 epinephrine 0.3 mg/0.3 mL auto-injector 0.3 mg IM PRN PRN (Reason: Allergic Reaction) Qty: 1 RF: 12 hormone replacement therapy- progesterone/estrogen 1 tab PO DAILY RF: 0 bupropion HCl [Wellbutrin XL] 300 mg tablet extended release 24 hr 300 mg PO QAM Qty: 90 RF: 3 hydrochlorothiazide 25 mg tablet 12.5 mg PO DAILY Qty: 45 RF: 3 alprazolam 0.5 mg tablet 0.5 mg PO DAILY PRN (Reason: anxiety) Qty: 30 RF: 3 Probiotic 10 billion cell Capsule 10,000 mmu cells PO DAILY RF: 0 estradiol 10 mcg Insert 10 mcg VAGINAL WEEKLY RF: 0 ondansetron 4 mg tablet,disintegrating 4 mg PO Q8H PRN (Reason: nausea and vomiting) Qty: 20 RF: 0
[2020-07-17 09:09] VITALS: BP 140/89; PULSE 74; RESP 14; TEMP 37; O2SAT 99; BMI 22.8
--- NOTE | 2020-07-17 09:10 | ED.GIBLEED ---
HPI - GI Bleed General Chief complaint: Abdominal Pain Stated complaint: BLOOD IN URINE/STOOL, HX GALLBLADDER ISSUES Time Seen by Provider: 07/17/20 08:47 Source: patient and family Mode of arrival: Ambulatory Limitations: no limitations History of Present Illness HPI Narrative: 45F former smoker with known gall bladder disease and planned endoscopy presents with the chief complaint of ongoing epigastric pain, blood in urine and blood with BMs over the past few days. She's had ongoing nausea and vomiting for much of the week. She has become a bit lightheaded and is profoundly fatigued. She denies any headache or blurred vision, she has no sore throat cough or shortness of breath. She denies any medication or dietary change. She states that her epigastric pain is persistent has been going on years. She states that thus far she has blood when she urinates and also with bowel movements, the blood is new for her and bright red. Patient has had US, CT, HIDA scan for her epigastric pain and is scheduled for an EGD in a week or so. She's had no hematemesis nor melena. MD complaint: blood streaked stool Onset (ago): day(s) Pain Consistency: constant Severity: moderate Relieving factors: none Exacerbating factors: none Associated symptoms: abdominal pain, nausea and vomiting Treatments Prior to Arrival: none Related Data Home Medications Medication Instructions Recorded Confirmed hormone replacement therapy- 1 tab PO DAILY 02/24/20 07/02/20 progesterone/estrogen Probiotic 10,000 mmu cells PO DAILY 05/07/20 07/02/20 estradiol 10 mcg VAGINAL WEEKLY 05/07/20 07/02/20 Previous Rx's Medication Instructions Recorded bupropion HCl 300 mg 24 hr tablet, 300 mg PO QAM #90 tab 02/24/20 extended release hydrochlorothiazide 25 mg tablet 12.5 mg PO DAILY #45 tab 02/24/20 epinephrine 0.3 mg/0.3 mL 0.3 mg IM PRN PRN #1 each 03/31/20 injection, auto-injector pantoprazole 40 mg tablet,delayed 40 mg PO BID #60 tab 04/19/20 release ondansetron 4 mg PO Q8H PRN #20 tab 05/07/20 alprazolam 0.5 mg tablet 0.5 mg PO DAILY PRN #30 tab 06/23/20 sucralfate [Carafate] 1 g PO BID #30 tab 07/17/20 Allergies Allergy/AdvReac Type Severity Reaction Status Date / Time clarithromycin [From BIAXIN] Allergy Intermediate welts/hives Verified 07/17/20 09:12 gluten AdvReac Cough Verified 07/17/20 09:12 lactase [From Dairy Aid] AdvReac Nausea Verified 07/17/20 09:12 sodium tripolyphosphate Allergy Severe Anaphylaxis Uncoded 07/17/20 09:12 Review of Systems Constitutional Constitutional: Denies chills, Reports fatigue, Denies fever(s), Denies frequent falls, Denies lethargy and Reports weakness Eyes Eyes: Denies change in vision, Denies eye discharge, Denies irritation and Denies loss of vision ENT Ears, Nose, Mouth, and Throat: Denies change in voice, Denies dizziness, Denies neck pain, Denies sore throat and Denies throat swelling Cardiovascular Cardiovascular: Denies chest pain, Denies irregular heart rhythm, Denies lightheadedness, Denies palpitations, Denies dyspnea, Denies dyspnea on exertion and Denies orthopnea Respiratory Respiratory: Denies cough, Denies dyspnea, Denies dyspnea on exertion and Denies wheezing Gastrointestinal Gastrointestinal: Reports abdominal pain, Reports hematochezia, Denies change in bowel habits, Denies diarrhea, Reports nausea and Reports vomiting Genitourinary Genitourinary: Reports hematuria Genitourinary: Reports hematuria Musculoskeletal Musculoskeletal: Denies neck pain and Denies numbness Integumentary/Breasts Skin/Breast: Denies pruritus, Denies erythema, Denies rash and Denies wounds Neurologic Neurologic: Denies behavioral changes, Denies confusion, Denies dizziness, Denies frequent falls, Denies loss of vision, Denies numbness and Reports weakness Psychiatric Psychiatric: Denies anxiety, Denies behavioral changes, Denies confusion, Denies depression, Denies homicidal ideation and Denies suicidal ideation Endocrine Endocrine: Reports fatigue, Denies flushing and Denies palpitations Hematologic/Lymphatic Hematologic/Lymphatic: Denies easy bruising Allergic/Immunologic Allergic/Immunologic: Denies urticaria, Denies throat swelling and Denies wheezing Patient History Medical History (Updated 07/17/20 @ 11:51 by Joe Stanley DO) Asthma (~1989) Chicken pox (~1979) Endometriosis (~1989) Gluten intolerance (~2007) Hypertension (~1991) Mitral valve prolapse Thoracic outlet syndrome (~1991) Surgical History History of hysterectomy (~04/2001) History of laparoscopy Hx of removal of ovary (~08/2002) Status post breast reduction (~07/2010) Surgical procedure planned (~02/1998) Family History Father Hyperlipidemia Mother Diabetes mellitus Hypertension Grandfather Stroke Grandmother Diabetes mellitus Hypertension Stroke Grandfather Cancer Grandmother History of emphysema Social History household members: spouse, family and children Smoking Status: Former smoker second hand exposure: No alcohol intake: current substance use type: marijuana Smoking Status: Former smoker alcohol intake frequency: a few times a week Substance Use Type: marijuana Exam Narrative Exam Narrative: GENERAL: [45] year old patient appears stated age. Well-nourished, well-developed patient, in mild distress. HEAD: Atraumatic. Normocephalic. EYES: Pupils equal round and reactive. Extraocular motions intact. No scleral icterus. No injection or drainage. ENT: Nose without bleeding, purulent drainage. Throat without erythema, tonsillar hypertrophy or exudate. Airway patent. NECK: Trachea midline. Non tender CARDIOVASCULAR: Regular rate and rhythm without murmurs, gallops, or rubs. RESPIRATORY: Clear to auscultation. Breath sounds equal bilaterally. No wheezes, rales, or rhonchi. GASTROINTESTINAL: Abdomen soft, epigastric pain, nondistended. EXTREMITIES: No edema or joint tenderness. BACK: Nontender without deformity or crepitance. No flank tenderness. NEURO: AOx3. SKIN: No rash or erythema of visible areas Initial Vital Signs Initial Vital Signs: Vital Signs Temperature 98.6 F 07/17/20 09:09 Pulse Rate 74 07/17/20 09:09 Respiratory Rate 14 07/17/20 09:09 Blood Pressure 140/89 07/17/20 09:09 Pulse Oximetry 99 07/17/20 09:09 Course Orders Ordered: ED Orders 07/17/20 10:00 Complete Blood Count AUTO DIFF Stat Comprehensive Metabolic Panel Stat Lipase Stat Discontinued Medications Hydromorphone HCl (Hydromorphone 0.5 Mg Inj) 0.5 mg IV NOW ONE Stop: 07/17/20 11:25 Last Admin: 07/17/20 11:41 Dose: 0.5 mg Documented by: HARI Sodium Chloride (Normal Saline 0.9%) 1,000 mls @ 1,000 mls/hr IV BOLUS ONE Stop: 07/17/20 09:55 Last Infusion: 07/17/20 11:53 Dose: 0 mls/hr Documented by: Admin: 07/17/20 10:09 Dose: 1,000 mls/hr Documented by: HARI Ondansetron HCl (Ondansetron 4 Mg/2 Ml Inj) 4 mg IV NOW ONE Stop: 07/17/20 10:13 Last Admin: 07/17/20 10:16 Dose: 4 mg Documented by: HARI Pantoprazole Sodium (Pantoprazole 40 Mg Vial) 40 mg IV NOW ONE Stop: 07/17/20 08:57 Last Admin: 07/17/20 10:09 Dose: 40 mg Documented by: HARI Vital Signs Vital signs: Vital Signs - 8 hr 07/17/20 11:44 07/17/20 12:13 Pulse Rate 88 72 Respiratory Rate 14 16 Blood Pressure 182/88 H 129/84 Pulse Oximetry 99 99 MDM - GI Bleed Lab Data Result diagrams: 07/17/20 10:00 07/17/20 10:00 Labs: Lab Results 07/17/20 07/17/20 07/17/20 Range/Units 10:00 10:00 10:00 WBC 6.1 (4.5-11.0) X10^3/uL RBC 4.54 (4.0-5.2) X10^6/uL Hgb 14.1 (12.0-16.0) g/dL Hct 42.1 (36-46) % MCV 92.7 (80-100) fL MCH 31.0 (26-34) PG MCHC 33.5 (30-36) % RDW 13.6 (11.6-14.8) % Plt Count 274 (150-400) X10^3/uL Neut % (Auto) 60.9 (50-75) % Lymph % (Auto) 27.6 (25-40) % [place] % (Auto) 9.8 (3-14) % Eos % (Auto) 0.7 L (2-4) % Baso % (Auto) 1.0 (0-2) % Neut # (Auto) 3700 (2250-2250) /uL Lymph # (Auto) 1700 (6434-2395) /uL [place] # (Auto) 600 (0-900) /uL Eos # (Auto) 0 (0-450) /uL Baso # (Auto) 100 (0-100) /uL Sodium 138 (137-145) mmol/L Potassium 4.1 (3.4-5.1) mmol/L Chloride 103 (98-107) mmol/L Carbon Dioxide 29 (22-32) mmol/L BUN 18 H (7-17) mg/dL Creatinine 0.67 (0.52-1.04) mg/dL Estimated GFR > 60.0 (>60) mL/min BUN/Creatinine Ratio 26.9 H (6-22) Glucose 103 H (70-100) mg/dL Calcium 9.1 (8.4-10.2) mg/dL Total Bilirubin 0.7 (0.2-1.3) mg/dL AST 37 H (14-36) IU/L ALT 38 H (<35) IU/L Alkaline Phosphatase 74 (38-126) U/L Total Protein 7.3 (6.3-8.2) g/dL Albumin 4.2 (3.5-5.0) g/dL Globulin 3.1 (1.7-4.1) g/dL Albumin/Globulin Ratio 1.4 (1.0-2.8) Lipase 82 (23-300) U/L Urine Dip Bedside Urine Glucose Negative Bedside Urine Bilirubin - Negative Bedside Urine Ketone - Negative Urine Specific [place] 1.015 Bedside Urine Occult Blood - Negative Bedside Urine pH 6.5 Bedside Urine Protein - Negative Bedside Urine Urobilinogen - Negative Bedside Urine Nitrite - Negative Bedside Urine Leukocytes - Negative Esterase Discharge Plan Departure Patient Disposition: Home Clinical Impression: Bright red rectal bleeding, Abdominal pain, chronic, epigastric Instructions: DI for Abdominal Pain-Adult, DI for Rectal Bleeding Activity Restrictions/Additional Instructions: *You have been diagnosed with [chronic epigastric pain. Bright red rectal bleeding, presumed diverticular bleed] *What to do: *Take medications as directed: We've added Carafate to the mix (transmitted to [facility]) *Please contact Dr. Chiu's office, call Sunday morning and let them know that you were seen in the emergency department and would like it to be seen in follow-up *Return to ER if you should have any new, worsening or concerning symptoms, such as [heavy rectal bleeding, fever greater than 101 F, increased pain or other bothersome symptoms Often times gastroenterology would recommend a clear liquid diet for few days to help the bleeding calm down Prescriptions: New sucralfate [Carafate] 1 gram tablet 1 g PO BID Qty: 30 RF: 0 No Action pantoprazole [Protonix] 40 mg tablet,delayed release (DR/EC) 40 mg PO BID Qty: 60 RF: 5 epinephrine 0.3 mg/0.3 mL auto-injector 0.3 mg IM PRN PRN (Reason: Allergic Reaction) Qty: 1 RF: 12 hormone replacement therapy- progesterone/estrogen 1 tab PO DAILY RF: 0 bupropion HCl [Wellbutrin XL] 300 mg tablet extended release 24 hr 300 mg PO QAM Qty: 90 RF: 3 hydrochlorothiazide 25 mg tablet 12.5 mg PO DAILY Qty: 45 RF: 3 alprazolam 0.5 mg tablet 0.5 mg PO DAILY PRN (Reason: anxiety) Qty: 30 RF: 3 Probiotic 10 billion cell Capsule 10,000 mmu cells PO DAILY RF: 0 estradiol 10 mcg Insert 10 mcg VAGINAL WEEKLY RF: 0 ondansetron 4 mg tablet,disintegrating 4 mg PO Q8H PRN (Reason: nausea and vomiting) Qty: 20 RF: 0 Referrals: Graham Shah MD [Primary Care Provider] -
[2020-07-17 10:06] LABS: Add Manual Diff / Slide Review NO; Basophils Absolute Auto 100 /uL (0-100); Eosinophils Absolute Auto 0 /uL (0-450); Eosinophils Percent Auto 0.7 % (2-4); Hematocrit 42.1 % (36-46); Hemoglobin 14.1 g/dL (12.0-16.0); Lymphocytes Absolute Auto 1700 /uL (1100-4500); Lymphocytes Percent Auto 27.6 % (25-40); Mean Corpuscular HGB Conc 33.5 % (30-36); Mean Corpuscular Volume 92.7 fL (80-100); Monocytes Absolute Auto 600 /uL (0-900); Monocytes Percent Auto 9.8 % (3-14); Neutrophils Absolute Auto 3700 /uL (1500-7000); Neutrophils Percent Auto 60.9 % (50-75); Platelet Count 274 X10^3/uL (150-400); Red Blood Cell Count 4.54 X10^6/uL (4.0-5.2); Red Cell Distribution Width 13.6 % (11.6-14.8); White Blood Cell Count 6.1 X10^3/uL (4.5-11.0)
[2020-07-17] MEDS: PANTOPRAZOLE 40 MG VIAL IV (10:09)
[2020-07-17] MEDS: SODIUM CHLORIDE 0.9% 1,000 ML 1000 ML IV (10:09)
[2020-07-17] MEDS: ONDANSETRON 4 MG/2 ML INJ IV (10:16)
[2020-07-17 10:25] LABS: Alanine Aminotransferase 38 IU/L (<35); Albumin 4.2 g/dL (3.5-5.0); Albumin Globulin Ratio 1.4 (1.0-2.8); Alkaline Phosphatase 74 U/L (38-126); Aspartate Aminotransferase 37 IU/L (14-36); BUN Creatinine Ratio 26.9 (6-22); Bilirubin Total 0.7 mg/dL (0.2-1.3); Blood Urea Nitrogen 18 mg/dL (7-17); Calcium 9.1 mg/dL (8.4-10.2); Carbon Dioxide 29 mmol/L (22-32); Chloride 103 mmol/L (98-107); Estimated Glomerular Filt Rate > 60.0 mL/min (>60); Globulin 3.1 g/dL (1.7-4.1); Glucose 103 mg/dL (70-100); HEMOLYSIS 30 (0-50); Lipase 82 U/L (23-300); Potassium 4.1 mmol/L (3.4-5.1); Sodium 138 mmol/L (137-145); Total Protein 7.3 g/dL (6.3-8.2)
[2020-07-17] MEDS: HYDROMORPHONE 0.5 MG INJ IV (11:41)
[2020-07-17 11:44] VITALS: BP 182/88; PULSE 88; RESP 14; O2SAT 99
[2020-07-17 12:13] VITALS: BP 129/84; PULSE 72; RESP 16; O2SAT 99
== END 2020-07-17 12:15 | disposition home or self-care (01) ==
PROVIDERS: Emergency Provider Emergency Medicine; PCP Family Medicine
DX: K62.5 Hemorrhage of anus and rectum (principal); R10.13 Epigastric pain; R11.2 Nausea with vomiting, unspecified; R42 Dizziness and giddiness; R31.9 Hematuria, unspecified
CPT/HCPCS: 36415; 80053; 81003; 83690; 85025; 96361; 96374; 96375; 99281; 99284; C9113; J1170; J2405

== ENCOUNTER → 2020-07-22 10:32 | Outpatient (CLI) | payer OTHER, SELFPAY ==
[2020-07-22 11:26] LABS: COVID19 -Nasal RAPID Negative (Negative)
== END ==
PROVIDERS: PCP Family Medicine; Visit Provider Surgery
DX: Z01.812 Encounter for preprocedural laboratory examination (principal); Z20.822 Contact with and (suspected) exposure to COVID-19
CPT/HCPCS: 87635; C9803

== ENCOUNTER 2020-07-23 10:29 | Day surgery (SDC) | payer OTHER, SELFPAY ==
--- NOTE | 2020-07-23 | PATH_ITS ---
[facility] Accession Number: [id number] . 01 Material submitted: . PART A: duodenum - DUODENAL BIOPSIES PART B: gastrointestinal site - STOMACH BIOPSIES PART C: esophagus - ESOPHAGEAL BIOPSIES . 02 Diagnosis: A. Duodenum, Biopsies: Duodenal mucosa with no diagnostic abnormality. Negative for active inflammation, features of sprue, dysplasia, or malignancy. . B. Stomach, Biopsies: Antral mucosa with mild chronic gastritis. Negative for Helicobacter organisms by immunohistochemistry. Negative for intestinal metaplasia. Negative for dysplasia and malignancy. . C. Esophagus, Biopsies: Squamocolumnar junctional mucosa with specialized intestinal metaplasia, consistent with Sr's esophagus. Negative for dysplasia and malignancy. I 07/29/2020 1506 Local . 02 Electronically signed: . Melida Elaine MD, Pathologist NPI- [id number] . 01 Gross description: . Part A: DUODENAL BIOPSIES: Received in formalin are 2 fragment(s) of cheek, soft tissue measuring 0.2 x 0.2 x 0.2 cm to 0.3 x 0.2 x 0.2 cm submitted entirely in 1 cassette(s) Part B: STOMACH BIOPSIES: Received in formalin are 2 fragment(s) of cheek, soft tissue measuring 0.1 x 0.1 x 0.1 cm to 0.2 x 0.2 x 0.2 cm submitted entirely in 1 cassette(s) Part C: ESOPHAGEAL BIOPSIES: Received in formalin are 3 fragment(s) of cheek, soft tissue measuring 0.1 x 0.1 x 0.1 cm to 0.3 x 0.1 x 0.1 cm submitted entirely in 1 cassette(s) /CARL 07/26/2020 1859 Local . 02 Microscopic: . B. An immunohistochemical stain was performed to evaluate for Helicobacter organisms and is negative. The control stain showed appropriate reactivity. . * This test was developed and its performance characteristics determined by [facility]. It has not been cleared or approved by the U.S. Food and Drug Administration. The FDA has determined that such clearance or approval is not necessary. This test is used for clinical purposes. It should not be regarded as investigational or for research. . 02 Pathologist provided ICD-10: K22.70, R10.13 . 02 CPT . 630667, 456247, 211769, [id number] Performed at: 01 [facility] [address] [id number] MD Pipe Galarza MD Phone: [phone] Performed at: 02 [facility] [address] [place] [id number] MD Melida Elaine MD Phone: [phone]
[2020-07-23] MEDS: SODIUM CHLORIDE 0.9% 1,000 ML 200 ML IV (10:38)
[2020-07-23 10:39] VITALS: BP 133/81; PULSE 81; RESP 16; TEMP 36.9; O2SAT 100; BMI 22.8
[2020-07-23] MEDS: LIDOCAINE 4% SOLN 50 ML 20 ML TOP (11:44)
--- NOTE | 2020-07-23 11:44 | PM.PREOP ---
Pre-operative Note COVID-19 COVID-19 status: Negative Result date/Date tested (Pos, Neg/Pending): 07/22/20 Interval Note History & Physical reviewed/Exam performed by Physician: Yes Changes to H&P: No ASA Class (for procedural sedation): II
[2020-07-23] MEDS: MIDAZOLAM 5 MG/5 ML VIAL IV (11:45)
[2020-07-23] MEDS: fentaNYL 250 MCG/5 ML INJ IV (11:45)
--- NOTE | 2020-07-23 12:03 | PM.OP.ENDO ---
Operative Date/Time/Diagnoses Date of procedure: 07/23/20 Time of procedure: 12:03 Pre-op diagnosis: Persistent right upper quadrant pain, heartburn, acid reflux symptoms Post-op diagnosis: other (5 cm hiatal hernia, with evidence of Sr's esophagus) Procedure & Clinicians Study performed: Esophagogastroduodenoscopy Biopsies of duodenum, stomach, and distal esophagus with standard forceps Monitored anesthesia care performed by the anesthesiologist due to inadequate sedation using Versed and fentanyl by the endoscopist Same procedure as scheduled: No (Initially scheduled with procedural sedation by endoscopist) Indications: This is a 45-year-old woman with history of multiple abdominal complaints, with right upper quadrant epigastric pain and heartburn symptoms not resolved using PPI x6 weeks. She required Propofol sedation given by the anesthesiologist due to the fact that she was completely awake after attempting procedural sedation with Versed and fentanyl. After receiving 10 mg of Versed and 100 micro g of fentanyl she appeared completely awake and was not tolerate the procedure. The anesthesiologist was consulted urgently to come in and assist us to complete the procedure by giving propofol sedation. Surgeon: Kiesha De La Vega Procedure Notes SCOAP/Timeout: Performed Procedure in detail: The patient was brought to the room and placed in left lateral decubitus position with all bony prominences padded. A bite block was positioned in the patient's mouth to protect the lips, teeth, and tongue for the procedure. A time-out was performed and then the patient was given procedural sedation starting with 4 mg of Versed an100] mcg of fentanyl. A total of 10 mg of Versed were given in the patient remained awake appearing, and did not tolerate passage of the endoscope. Dr. Michelle was called urgently to come in and provide deeper sedation with propofol. Vitals were monitored throughout the procedure and remained stable. Once adequately sedated, the procedure was begun. The lubricated gastroscope was passed through the bite block and across the tongue and into the esophagus without incident. A tubular view of the esophagus was maintained as the scope was advanced through the esophagus and into the stomach. The scope was advanced through the stomach and to the pylorus. The scope was gently popped through the pylorus and into the duodenal bulb. The scope was flexed and advanced into the second and third portions of the duodenum. The duodenum and duodenal bulb [appeared normal. The scope was withdrawn into the stomach. The stomachappeared fairly normal]. The scope was retroflexed and the gastric cardia was examined. There was an intermittent gaping of the hiatus around the scope, up to 3 cm wide consistent with Hill grade 2-3 hiatal hernia. The scope was then straightened, and withdrawn into the esophagus. The crural pinch was at 40 cm, and there was a broken Z-line at 35 cm. There were 1-2 cm tongues of [place]-colored mucosa coming up into the esophagus. This area is biopsied. The rest of the esophagus appeareded normal. The scope was then withdrawn through the esophagus with a tubular view. The scope was then withdrawn from the patient the procedure was concluded. The patient tolerated the procedure well once adequately sedated and was transferred to the PACU in stable condition. Findings: Sr's esophagus and hiatal hernia (5 cm) Specimen(s): other (Biopsies of duodenum, stomach, distal esophagus) Complications: none Impression: Evidence of reflux esophagitis, consistent with Sr's esophagus, and a hiatal hernia which was 5 cm vertically and 3 cm transversely Post-procedure Recommendations: Continue medication(s) (Continue Protonix) and Other recommendation (Will depend on biopsy results) Follow up: as needed Disposition: PACU
[2020-07-23 12:10] VITALS: BP 116/73; PULSE 84; RESP 18; TEMP 36.7; O2SAT 99
--- NOTE | 2020-07-23 12:14 | SUR.PREOP ---
for vs taken at 1210 pt's bp was +/-20 of that of baseline.
[2020-07-23 12:15] VITALS: BP 128/84; PULSE 86; RESP 18; O2SAT 98
[2020-07-23 12:20] VITALS: BP 128/85; PULSE 84; RESP 18; O2SAT 100
[2020-07-23 12:25] VITALS: BP 130/85; PULSE 86; RESP 18; O2SAT 99
[2020-07-23 12:30] VITALS: BP 129/76; PULSE 87; RESP 18; TEMP 36.6; O2SAT 99
== END 2020-07-23 12:57 | disposition home or self-care (01) ==
PROVIDERS: PCP Family Medicine; Referring Provider Surgery; Visit Provider Surgery
PROC: 0DJ08ZZ Inspection of Upper Intestinal Tract, Via Natural or Artificial Opening Endoscopic (ICD-10-PCS; CPT 43235; principal; 2020-07-23 11:30)
DX: K29.50 Unspecified chronic gastritis without bleeding (principal); K90.41 Non-celiac gluten sensitivity; I10 Essential (primary) hypertension; J45.909 Unspecified asthma, uncomplicated; K44.9 Diaphragmatic hernia without obstruction or gangrene; K22.70 Barrett's esophagus without dysplasia
CPT/HCPCS: 43239; J2250; J3010

== ENCOUNTER → 2020-08-03 15:24 | Outpatient (CLI) | payer OTHER, SELFPAY ==
[2020-08-03 15:57] LABS: COVID19 -Nasal RAPID Negative (Negative)
== END ==
PROVIDERS: PCP Family Medicine; Referring Provider Surgery; Visit Provider Surgery
DX: Z01.812 Encounter for preprocedural laboratory examination (principal); Z20.822 Contact with and (suspected) exposure to COVID-19
CPT/HCPCS: 87635; C9803

== ENCOUNTER 2020-08-04 13:38 | Day surgery (SDC) | payer OTHER, SELFPAY ==
[2020-08-04] VITALS (19 sets, daily range): BP systolic 112–148; BP diastolic 74–87; PULSE 62–106; RESP 12–24; TEMP 36.1–37.1; O2SAT 93–100; BMI 22.8
--- NOTE | 2020-08-04 | PATH_ITS ---
[facility] Accession Number: [id number] . 01 Material submitted: . gallbladder - GALLBLADDER . 01 Diagnosis: Gallbladder, Cholecystectomy: Gallbladder with slight chronic inflammation, suggestive of mild chronic cholecystitis. MRV 08/09/2020 1335 Local . 01 Electronically signed: . Lala Pollack MD, Pathologist NPI- [id number] . 01 Gross description: . The specimen is received in formalin, labeled gallbladder and consist of a 9.0 x 3.0 x 2.5 cm intact gallbladder with a 0.5 cm in diameter cystic duct. The serosa is cheek-green and smooth. A 0.7 x 0.5 x 0.4 cm cheek-pink pericystic lymph node is identified. The specimen is opened to reveal green viscous bile with no choleliths identified. The mucosa is cheek-green and trabeculated, and the wall thickness measures 0.1 cm. Natural Resource Technician sections are submitted to include the en face cystic duct margin (green) and pericystic lymph node in cassette A1. ([id number]) /MRV 08/06/2020 1246 Local . 01 Pathologist provided ICD-10: K81.1 . 01 CPT . 632418 Performed at: [address] [facility] [facility], [place], [place] [id number] MD Pipe Galarza MD Phone: [phone]
[2020-08-04] MEDS: ACETAMINOPHEN 325 MG TABLET 975 MG PO (14:15)
[2020-08-04] MEDS: LACTATED RINGERS 1,000 ML 42 ML IV ×2 (14:17→17:30)
[2020-08-04] MEDS: Non-Formulary Medication (Indocyanine Green 25 MG) 25 EACH IV (14:22)
--- NOTE | 2020-08-04 16:14 | PM.PREOP ---
Pre-operative Note COVID-19 COVID-19 status: Negative Result date/Date tested (Pos, Neg/Pending): 08/03/20 Interval Note History & Physical reviewed/Exam performed by Physician: Yes Changes to H&P: No
[2020-08-04] MEDS: APREPITANT 40 MG CAPSULE PO (16:20)
[2020-08-04] MEDS: SCOPOLAMINE 1 PATCH TOP (16:22)
[2020-08-04] MEDS: PIPERACILLIN-TAZO 3.375 GM/50 ML FROZ.PIGGY IV (16:26)
--- NOTE | 2020-08-04 16:54 | SUR.OPER ---
Supine on padded OR bed, head on pillow, arms secured on padded arm boards at <90 degrees abduction, legs uncrossed, safety belt at thigh, tape over blanket over lower legs.
[2020-08-04] MEDS: BUPIVACAINE 0.25% W/ EPI (PF) 10 ML VIAL 30 ML INJ (17:02)
--- NOTE | 2020-08-04 17:41 | PM.OP.1 ---
Operative Date/Time/Diagnoses Date of procedure: 08/04/20 Time of procedure: 17:41 Pre-op diagnosis: Biliary colic, abnormal HIDA scan Post-op diagnosis: same Procedure & Clinicians Procedure: Laparoscopic cholecystectomy with indocyanine cholangiography, 57747 Same procedure as scheduled: Yes Indications: Biliary colic, abnormal HIDA scan Surgeon: Kiesha De La Vega Anesthesia Type: General Operative Notes Findings: Elongated flacid gall bladder with abnormal serosal bands, good critical view and cystic duct clearly identified on ICG cholangiography Specimen(s): other (Gall bladder and contents) Estimated Blood Loss (mL): 1 Blood products transfused: none Procedure in detail: The patient was brought into the operating room and placed supine on the OR table. Sequential compression devices were placed on both legs and turned on. Appropriate perioperative antibiotics were given prior to the start of surgery. General anesthesia was induced the patient was intubated. The abdomen was prepped and draped in sterile fashion. Surgical time-out was conducted. Local anesthetic was injected under the skin just superior to the umbilicus and a 5 mm vertical incision was made at this site. The umbilical stalk was grasped with a Ever and elevated. A Veress needle was passed through the fascia into proper position. The position was tested with a saline drop test which was appropriate for intra-abdominal Veress needle placement. The abdomen was then insufflated in the usual fashion. Once insufflated to 15 mm Hg the Veress needle was removed and a 5 mm optical trocar was placed under direct vision using a 5 mm 30 degree scope. Once the camera was inside the abdomen I took a look around. There was no injury from port placement. Two additional ports were placed in a similar fashion in the right upper quadrant and a 10 mm port was placed in the epigastrium. The gall bladder was significantly elongated and flaccid, typically seen in patients with neuromuscular dysfunction of the gall bladder. There were thin broad bands of connective tissue overlying the gall bladder and the entire subhepatic surface of the right lobe of the liver. These bands appeared to be congenital bands rather than inflammatory. Through the 2 lateral ports the gallbladder was grasped and elevated. The connective bands were taken down in order to expose the gall bladder surface. The infundibulum was then grasped and retracted laterally to the patient's right. This exposed the gallbladder hilum and allowed for dissection of the cystic duct and cystic artery. At this point indocyanine cholangiography was used to evaluate the length of the cystic duct and its relationship to the common bile duct. The cystic duct appeared very long and the common duct was well below the area of dissection. Dissection was then undertaken to skeletonize the cystic duct and artery. Once the cystic duct and artery were completely dissected out, I was able to see liver behind and between both structures without any other structures in the way, giving us the critical view of safety. At this point I triply clipped both structures on the patient's side and put a single clip on the gallbladder side of both the cystic duct and artery. Both structures were then divided with laparoscopic Tee. Following this the gallbladder was gradually dissected free from the liver in the usual fashion using hook cautery. Once the gallbladder was entirely freed, it was placed inside an Endo-Catch bag and removed through the epigastric port site. I did not have to enlarge the epigastric port site in order to get the gallbladder out. Once it was out and passed off to the back table I then took another look inside the abdomen. I suctioned clean any remaining blood or fluid on the lateral side of the liver and in the subhepatic space. There was no active bleeding or leaking of bile from the gallbladder fossa or from the clipped stumps of the cystic duct and artery. At this point the epigastric port site was closed with 0 Vicryl using a Miguel Angel Desmond suture passer. The insufflation was then removed from the abdomen and the epigastric port site was closed with 3-0 Vicryl in the subcutaneous layers, and 4-0 Monocryl in the skin. The remaining port sites were closed with 4-0 Monocryl in the skin. Each port site was sealed with Dermabond. Local anesthetic was given at each of the port sites and in the fascia. This concluded the procedure. At this point the needle sponge and instrument counts were correct. The gallbladder was passed off the table for pathology. Patient was awakened from anesthesia and extubated. She was transferred to the postanesthesia care unit in stable condition. Complications: none Post-operative Condition: stable Disposition: PACU
[2020-08-04] MEDS: METOCLOPRAMIDE 10 MG/2 ML INJ IV (18:14)
[2020-08-04] MEDS: KETOROLAC 30 MG/ML VIAL IV (18:14)
[2020-08-04] MEDS: ONDANSETRON 4 MG/2 ML INJ IV (18:28)
[2020-08-04] MEDS: fentaNYL 100 MCG/2 ML INJ IV ×2 (18:28→18:39)
--- NOTE | 2020-08-04 18:34 | SUR.PHASEI ---
1814 late entry Medicated for nausea, queeze-ease given upon arrival. Pt medicated by anesthesia on arrival for pain, dozing intermittently. Dr. De La Vega here talking to patient; patient tole her that the nausea is worse than the pain. She had just rated the pain at 6/10. explained to her that we will reevaluate how she is doing and either keep her overnight or send her home depending on how she is doing. Pt was in agreement. Brief period of O2 for sat 89%. Put on 3LNP and went up to 100%, decreased to 2L and remained at 100%. O2 currently off -- sat 95% 1837 States that nausea is almost subsided and that the pain remains at 6-7/10
--- NOTE | 2020-08-04 19:07 | SUR.PHASEI ---
assume care at this time. pt. to be admitted to the floor
--- NOTE | 2020-08-04 19:13 | SUR.PHASEI ---
notified of pt being admitted tonight.
[2020-08-04] MEDS: SODIUM CHLORIDE 0.9% 1,000 ML 100 ML IV (20:15)
[2020-08-04] MEDS: HYDROMORPHONE 0.5 MG INJ IV (20:17)
[2020-08-04] MEDS: SUCRALFATE 1 GM TABLET PO (20:17)
[2020-08-04] MEDS: SENNOSIDES 8.6 MG TABLET 17.2 MG PO (20:17)
[2020-08-04] MEDS: DOCUSATE 100 MG CAPSULE PO (20:17)
[2020-08-04] MEDS: PANTOPRAZOLE 40 MG VIAL IV (20:17)
[2020-08-05 00:05] VITALS: BP 115/74; PULSE 62; RESP 18; TEMP 36.7; O2SAT 96
[2020-08-05] MEDS: OXYCODONE IR 5 MG TABLET PO ×2 (00:11→07:05)
[2020-08-05] MEDS: HYDROMORPHONE 0.5 MG INJ IV (04:39)
[2020-08-05 04:47] VITALS: BP 122/72; PULSE 69; RESP 18; TEMP 36.8; O2SAT 95
[2020-08-05] MEDS: SODIUM CHLORIDE 0.9% 1,000 ML 100 ML IV (06:27)
[2020-08-05 08:00] VITALS: BP 117/55; PULSE 60; RESP 12; TEMP 36.8; O2SAT 98
[2020-08-05] MEDS: SUCRALFATE 1 GM TABLET PO (09:12)
[2020-08-05] MEDS: PANTOPRAZOLE 40 MG VIAL IV (09:12)
--- NOTE | 2020-08-05 09:12 | CM.DANOTE ---
DCP: Case received, EMR reviewed and met with patient. Introduced self and role. Was able to obtain information from patient regarding her baseline health and activity status prior to hospitalization. DCP assessment completed with information currently available. Patient is a 45 year old female who admitted yesterday morning to the care of the surgical team. PCP: Dr. Cadena. Payer: confirmed: [employer]. Patient came to the hospital for a surgical procedure. She had a laparoscopic cholecystectomy. Patient had this as a planned surgery secondary to having calculus of the bile duct. Met with patient in her room. She is alert and oriented, sitting up in bed, pleasant. 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 She resides in [place] with her spouse, Irineo. P: DCP to continue to follow. Patient should be able to go home when she is medically stable and cleared by surgeon. Natalya Patel RN/Ambulatory Services Representative
[2020-08-05] MEDS: hydroCHLOROthiazide 25 MG TABLET 12.5 MG PO (09:13)
[2020-08-05] MEDS: ACETAMINOPHEN 325 MG TABLET 650 MG PO (09:14)
[2020-08-05] MEDS: LACTOBACILLUS ACIDOPHILUS TABLET 1 EACH PO (09:14)
[2020-08-05] MEDS: DOCUSATE 100 MG CAPSULE PO (09:14)
[2020-08-05] MEDS: buPROPion XL 150 MG TAB 300 MG PO (09:14)
--- NOTE | 2020-08-05 10:20 | PC.NURSE ---
Patient states she is eager to go home, discharge instructions and home care handouts reviewed with patient. She states understanding and has no further questions or concerns. VSS. Incisions to abdomen remain CDI, ENGINE TESTER with dermabond. Up independently in room, voiding without difficulty. Pain and nausea much improved today per patient. IV removed intact. Patient states she will call Dr. De La Vega's office to confirm follow up appointment. Patient escorted out via wheelchair with all her belongings to home with her . Instructed to call surgeon's office with questions or concerns or to seek emergent care for severe symptoms or emergency care.
--- NOTE | 2020-08-06 05:35 | PM.HP.1 ---
History of Present Illness History of Present Illness Date Patient Seen: 08/04/20 Time Patient Seen: 16:00 Chief complaint: SDC Narrative: This is a 45-year-old woman who has had several years of abdominal issues. To review: she has a history of endometriosis, diverticulitis, gluten allergy, dairy allergy, anxiety, who was here for complaint of epigastric pain, nausea, vomiting, reflux symptoms. She had a right upper quadrant ultrasound and CT scan which revealed no abnormalities. She had a HIDA scan with an EF of 65%, which may be considered upper limits of normal. She has persistent nausea all day as well as epigastric and RUQ pain that radiates to her right scapula. She denies associated jaundice or fevers. She avoids acidic foods that she feels that these exacerbate her heartburn and reflux symptoms. She had a colonoscopy last month, which revealed diverticulosis. EGD revealed evidence of reflux esophagitis, consistent with Sr's esophagus, and a hiatal hernia which was 5 cm vertically and 3 cm transversely. She continues to have the same symptom of epigastric, RUQ, and scapular pain. She continues taking Protonix for six weeks now. ROS: Itching, abdominal pain, reflux, vomiting, nausea, anxiety. Thirteen system review is otherwise negative other than as mentioned below and in HPI. PE: GENERAL: Well groomed and cooperative. Appears stated age. Answers questions promptly and appropriately. Vital signs noted. HENT: Normocephalic, atraumatic. Hearing intact. EYES: Conjunctiva pink, sclera white, no periorbital swelling. CARDIOVASCULAR: Regular rate. No pedal edema. RESPIRATORY: Non-tachypneic, breathing comfortably on room air. GASTROINTESTINAL: Abdomen soft and non-distended, tender to palpation in the epigastrium and RUQ beneath the right ribs GENITALURINARY: No flank tenderness. MUSCULOSKELETAL: Equal tone and mass bilaterally. SKIN: Warm, dry, soft, appropriate color for ethnicity. No other lesions, rashes, or wounds. NEURO: Alert and Oriented X 3. No gross sensory deficits, or cognitive issues. PSYCH: Appropriate affect and mood. Patient History Medical History Anxiety Asthma (~1989) Chicken pox (~1979) Diverticulitis Endometriosis (~1989) Enlarged liver (~03/2020) Gluten intolerance (~2007) Hiatal hernia Hypertension (~1991) Mitral valve prolapse Renal stone (~03/2020) Thoracic outlet syndrome (~1991) Surgical History History of colonoscopy History of esophagogastroduodenoscopy (EGD) History of hysterectomy (~04/2001) History of laparoscopy Hx of removal of ovary (~08/2002) Status post breast reduction (~07/2010) Surgical procedure planned (~02/1998) Family & Social History Family History Father Hyperlipidemia Mother Diabetes mellitus Hypertension Grandfather Stroke Grandmother Diabetes mellitus Hypertension Stroke Grandfather Cancer Grandmother History of emphysema Social History: household members spouse,family,children Prior Living Arrangements House Safety & Behavioral: Feels Safe in Current Yes Environment Been Physically Hurt or No Threatened By a Person Suicidal Ideation Description None Suicide Plan Description No Plan Tobacco & Substance use: Smoking Status Former smoker alcohol intake current alcohol intake frequency 0-2 drinks per day Substance Use Type marijuana Meds Home Medications and Allergies Home Medications Medication Instructions Recorded Confirmed Type bupropion HCl 300 mg 24 hr tablet, 300 mg PO QAM #90 tab 02/24/20 08/04/20 Rx extended release hormone replacement therapy- 1 tab PO DAILY 02/24/20 08/04/20 History progesterone/estrogen hydrochlorothiazide 25 mg tablet 12.5 mg PO DAILY #45 tab 02/24/20 08/04/20 Rx epinephrine 0.3 mg/0.3 mL 0.3 mg IM PRN PRN #1 each 03/31/20 08/04/20 Rx injection, auto-injector pantoprazole 40 mg tablet,delayed 40 mg PO BID #60 tab 04/19/20 08/04/20 Rx release Probiotic 10,000 mmu cells PO DAILY 05/07/20 08/04/20 History estradiol 10 mcg VAGINAL WEEKLY 05/07/20 08/04/20 History ondansetron 4 mg PO Q8H PRN #20 tab 05/07/20 08/04/20 Rx alprazolam 0.5 mg tablet 0.5 mg PO DAILY PRN #30 tab 06/23/20 08/04/20 Rx sucralfate [Carafate] 1 g PO BID #30 tab 07/17/20 08/04/20 Rx docusate sodium 100 mg PO BID #20 cap 08/04/20 08/04/20 Rx ondansetron 4 mg PO Q6H PRN #20 tab 08/04/20 Rx oxycodone 5 mg PO Q6H PRN #20 tab 08/04/20 Rx sucralfate [Carafate] 1 g PO BID PRN #60 tab 08/05/20 Rx Allergies Allergy/AdvReac Type Severity Reaction Status Date / Time clarithromycin [From BIAXIN] Allergy Intermediate welts/hives Verified 08/04/20 13:54 gluten AdvReac Cough Verified 08/04/20 13:54 lactase [From Dairy Aid] AdvReac Nausea Verified 08/04/20 13:54 sodium tripolyphosphate Allergy Severe Anaphylaxis Uncoded 08/04/20 13:54 Exam Vital Signs (past 8 hours): Oxygen Delivery Method Room Air Oxygen Flow Rate [address] scan - abdomen: Radiologist's impression: PROCEDURE: NM HIDA WITH CCK PHARMACEUTICAL: 5.5 mCi Tc-99m mebrofenin IV; 1.4 mcg CCK IV. INDICATIONS: biliary colic, no gall stones on US or CT TECHNIQUE: Following intravenous administration of Tc-99m mebrofenin, sequential anterior abdominal images were obtained. To evaluate the contractile response of the gallbladder in response to Cholecystokinin (CCK), sincalide (0.02 ?g/kg) was administered by slow intravenous infusion approximately 60 minutes after the administration of the radiopharmaceutical. Sequential imaging was continued for 30 minutes after the start of CCK infusion. Gallbladder ejection fraction was calculated. COMPARISON: [facility], US, US ABDOMEN COMPLETE, 03/17/2020, 10:47. [facility], CT, CT CHEST ABD PEL W CON, 03/22/2020, 5:52. FINDINGS: Biliary scan: There is normal tracer uptake and excretion by the liver. There is normal visualization of the intrahepatic ducts, common bile duct, and gallbladder. There is normal tracer transit into the duodenum. CCK stimulation: There is normal contractile response of the gallbladder to CCK infusion. The calculated gallbladder ejection fraction is 65%; normal values are above 35%. It has been shown that any patient abdominal pain after CCK administration is related to the rate of CCK injection, rather than to any underlying gallbladder disease (Clinical Nuclear Medicine 2012; 37: 63-70. Journal of Nuclear Medicine 2014; 55: 1-9). IMPRESSION: 1. Normal filling of gallbladder. No evidence for acute cholecystitis. 2. Normal contractile response of gallbladder to CCK stimulation. Dictated by: Vance Olivarez M.D. on 05/05/2020 at 11:38 Approved by: Vance Olivarez M.D. on 05/05/2020 at 11:[address] [address] Ultrasound Report Signed Patient: Tay FreemanarMR#: [id number] : 1975Acct:[id number] Age/Sex: 44 / FDate of Service: 03/17/20 Loc: US Accession Number: [id number] Procedure: US abdomen complete Ordering Provider: Graham Shah MD PROCEDURE: US ABDOMEN COMPLETE INDICATIONS: ABDOMINAL PAIN TECHNIQUE: Real-time scanning was performed of the abdominal and retroperitoneal organs, with image documentation. COMPARISON: None. FINDINGS: Liver: The liver demonstrates prominent size. The liver demonstrates generalized increased echogenicity. This decreases ultrasound sensitivity for detection of hepatic masses. The main portal vein is mildly prominent at 1.8 cm. Normal appearing hepatopetal flow can be seen. Gallbladder: No findings of gallstones or sludge are seen. The gallbladder wall is not thickened, measuring 3 mm or less. No specific pericholecystic fluid is seen. The sonographic Abbott sign is negative. Biliary ducts: Intrahepatic bile ducts are non-dilated. Extrahepatic bile duct caliber measures 7 mm. Normal is 6-7 mm or less in diameter, or 10 mm or less post-cholecystectomy. Pancreas: Visualized portions of the pancreas are sonographically normal. Spleen: Spleen is normal in size and homogeneous in echotexture. Kidneys: Kidneys are normal in size and echotexture. Right kidney measures 10.6 cm long; left kidney measures 10.3 cm long. No hydronephrosis or nephrolithiasis. No solid masses. Aorta: Visualized aorta is normal in caliber at less than 3 cm. Iliacs: Not seen. IVC: Intrahepatic inferior vena cava is patent. Miscellaneous: No free abdominal fluid. IMPRESSION: Normal appearing gallbladder. The common bile duct measures at the upper limits of normal at 7 mm. Enlarged, echogenic liver. Slightly enlarged portal vein, with normal appearing, hepatopetal flow seen within it. Dictated by: Kike Rodriguez M.D. on 03/17/2020 at 10:42 Approved by: Kike Rodriguez M.D. on 03/17/2020 at 10:[address] [address] [address] Scan Report Signed Patient: Tay FreemanarMR#: [id number] : 1975Acct:[id number] Age/Sex: 44 / FDate of Service: 03/22/20 Loc: ED Accession Number: [id number] Procedure: CT chest abd pel w con Ordering Provider: Joe Stanley D.O. PROCEDURE: CT CHEST ABD PEL W CON INDICATIONS: severe epigastric pain with radiation to back TECHNIQUE: After the administration of intravenous contrast, 5 mm thick sections acquired from the lung apices to the symphysis. 5 mm coronal and sagittal reformats were performed, with additional 7 mm MIP reformats through the lungs. For radiation dose reduction, the following was used: automated exposure control, adjustment of mA and/or kV according to patient size. COMPARISON: [facility], US, US ABDOMEN COMPLETE, 03/17/2020, 10:47. [facility], CT, CT ABDOMEN PELVIS W CON, 02/12/2019, 8:26. FINDINGS: Image quality: Excellent. CHEST: Lungs and pleura: No acute airspace opacities. Within the subpleural left lower lobe on series 3, image 202, there is a 3 mm nodular focus seen. Within the right lower lobe on series 3, image 188, there is a 6 mm calcified focus seen, which is attributed to a benign granuloma. No pleural effusions or pneumothorax. Central and peripheral airways appear patent and normal in caliber. Mediastinum: Heart size is normal. No pericardial effusion. No mediastinal or hilar adenopathy by size criteria. Thoracic aorta and central pulmonary arteries are normal in size. No findings of aortic dissection are seen. Esophagus is normal in caliber. No hiatal hernia. Chest wall: No axillary or supraclavicular adenopathy by size criteria. Thyroid gland demonstrates no significant abnormality. ABDOMEN: Solid organs: Liver is prominent in size. No focal suspicious liver abnormalities are seen. Incidental note is made of focal fatty infiltration adjacent to the falciform ligament, which is not regarded to be pathologic. Gallbladder wall is not thickened. Biliary system is non dilated. Pancreas enhances normally. Spleen is normal in size and enhancement. No adrenal nodules. Kidneys demonstrate normal size and enhancement, without hydronephrosis. There is a tiny 2 mm nonobstructing right-sided kidney stone seen, as on series 2, image 75. Peritoneum and bowel: Bowel loops demonstrate normal wall thickness and caliber. No free fluid or air. Minimal sigmoid diverticulosis is seen, without diverticulitis. Nodes and vessels: No retroperitoneal or mesenteric adenopathy by size criteria. Aorta and inferior vena cava are normal in size. Negative for aortic dissection. Miscellaneous: No ventral hernias. PELVIS: Genitourinary: Bladder wall thickness is normal. No uterus is seen and is presumed to have been previously removed. No adnexal masses can be seen on either side. Miscellaneous: No inguinal hernias or adenopathy. Left pelvic clips are seen. Bones: No suspicious bony lesions. No vertebral body compression fractures. IMPRESSION: Negative study. Specifically, no acute aortic pathology is seen. Stable lung base nodules are seen, which are regarded to be benign. No specific imaging follow-up is recommended, although attention should be paid to these foci on any future follow-up studies. Incidental note is made of: Enlarged liver 2 mm nonobstructing right-sided kidney stone Hysterectomy Left pelvic clips Diverticulosis, without active diverticulitis Note: No significant discrepancy from the preliminary report. Dictated by: Kike Rodriguez M.D. on 03/22/2020 at 7:24 Approved by: Kike Rodriguez M.D. on 03/22/2020 at 7:31 Assessment & Plan Assessment & Plan narrative: 45 yo woman with abnormal HIDA scan and suspected biliary colic secondary to neuromuscular dysfunction of the gall bladder. Risk and benefit of laparoscopic possible open cholecystectomy were discussed including bleeding, infection, damage to nearby structures, need for additional procedures, need for open surgery, bile duct injury, bile leak, post cholecystectomy syndrome. The patient desires to proceed with cholecystectomy. Plan: proceed to OR for lap possible open cholecystectomy with indocyanine cholangiography COVID-19 COVID-19 status: Negative Result date/Date tested (Pos, Neg/Pending): 08/03/20 Time Spent With Patient Time with patient: 15-24 minutes Quality VTE Deep Vein Thrombosis/Pulmonary Embolism Present on Admission: No
== END 2020-08-05 10:28 | disposition home or self-care (01) ==
LOC: OR 16:18 → AC 19:36
PROVIDERS: PCP Family Medicine; Referring Provider Surgery; Visit Provider Surgery
PROC: 0FT44ZZ Resection of Gallbladder, Percutaneous Endoscopic Approach (ICD-10-PCS; CPT 47562; principal; 2020-08-04 14:30)
DX: K81.1 Chronic cholecystitis (principal); F41.9 Anxiety disorder, unspecified
CPT/HCPCS: 47563; C9113; J1100; J1170; J1885; J2250; J2405; J2543; J2704; J2765; J3010; J8501

== ENCOUNTER → 2020-09-07 17:50 | Outpatient (CLI) | payer OTHER, SELFPAY ==
[2020-08-04 21:12] VITALS: BMI 22.8
--- NOTE | 2020-09-07 17:54 | DI.RAD.S_ITS ---
PROCEDURE: XR FOOT LT MIN 3V INDICATIONS: L foot pain, bruising, to 2nd 3 phalanges and metatarsals TECHNIQUE: 3 views of the foot were acquired. COMPARISON: [facility], , FOOT 3V LEFT, 02/17/2013, 9:03. [facility], , FOOT 3V RIGHT, 11/11/2014, 9:14. FINDINGS: Bones: There is a minimally displaced fracture through the midportion of the 2nd proximal phalanx. Soft tissues: No tibiotalar joint effusion. Achilles tendon appears normal. IMPRESSION: Minimally displaced 2nd proximal phalanx fracture. Dictated by: Jayde Dominguez M.D. on 09/07/2020 at 17:36 Approved by: Jayde Dominguez M.D. on 09/07/2020 at 17:38
== END ==
PROVIDERS: PCP Family Medicine; Referring Provider Nurse Practitioner; Visit Provider Nurse Practitioner
DX: S92.512A Displaced fracture of proximal phalanx of left lesser toe(s), initial encounter for closed fracture (principal); X58.XXXA Exposure to other specified factors, initial encounter
CPT/HCPCS: 73630

== ENCOUNTER → 2021-01-31 06:51 | Outpatient (CLI) | payer OTHER, SELFPAY ==
[2020-08-04 21:12] VITALS: BMI 22.8
[2021-01-31 08:34] LABS: Creatinine Urine Random 61.7 mg/dL
[2021-01-31 08:37] LABS: Cholesterol 182 mg/dL (140-199); HDL Cholesterol 70 mg/dL (40-60); Triglycerides 87 mg/dL (35-150)
[2021-01-31 08:38] LABS: LDL Cholesterol Calculated 95 mg/dL (<100)
[2021-01-31 08:39] LABS: Microalbumin Urine Random < 0.6 mg/dL (0-1.6)
[2021-01-31 13:03] LABS: Alanine Aminotransferase 26 IU/L (<35); Albumin 3.8 g/dL (3.5-5.0); Albumin Globulin Ratio 1.5 (1.0-2.8); Alkaline Phosphatase 53 U/L (38-126); Aspartate Aminotransferase 30 IU/L (14-36); BUN Creatinine Ratio 26.4 (6-22); Bilirubin Total 0.5 mg/dL (0.2-1.3); Blood Urea Nitrogen 19 mg/dL (7-17); Calcium 9.2 mg/dL (8.4-10.2); Carbon Dioxide 30 mmol/L (22-32); Chloride 104 mmol/L (98-107); Estimated Glomerular Filt Rate > 60.0 mL/min (>60); Globulin 2.6 g/dL (1.7-4.1); Glucose 109 mg/dL (70-100); HEMOLYSIS < 15 (0-50); Potassium 4.1 mmol/L (3.4-5.1); Sodium 139 mmol/L (137-145); Total Protein 6.4 g/dL (6.3-8.2)
[2021-01-31 14:51] LABS: Add Manual Diff / Slide Review NO; Basophils Absolute Auto 0 /uL (0-100); Basophils Percent Auto 0.6 % (0-2); Eosinophils Absolute Auto 100 /uL (0-450); Eosinophils Percent Auto 1.1 % (2-4); Hematocrit 40.9 % (36-46); Hemoglobin 13.7 g/dL (12.0-16.0); Lymphocytes Absolute Auto 2500 /uL (1100-4500); Lymphocytes Percent Auto 35.1 % (25-40); Mean Corpuscular HGB Conc 33.5 % (30-36); Mean Corpuscular Volume 95.3 fL (80-100); Monocytes Absolute Auto 600 /uL (0-900); Monocytes Percent Auto 8.4 % (3-14); Neutrophils Absolute Auto 3900 /uL (1500-7000); Neutrophils Percent Auto 54.8 % (50-75); Platelet Count 259 X10^3/uL (150-400); Red Cell Distribution Width 12.7 % (11.6-14.8)
== END ==
PROVIDERS: PCP Family Medicine; Referring Provider Naturopath; Visit Provider Naturopath
DX: Z00.00 Encounter for general adult medical examination without abnormal findings (principal); I10 Essential (primary) hypertension
CPT/HCPCS: 36415; 80053; 80061; 82043; 82570; 85025

== ENCOUNTER → 2021-02-02 10:57 | Outpatient (CLI) | payer OTHER, SELFPAY ==
[2020-08-04 21:12] VITALS: BMI 22.8
--- NOTE | 2021-02-02 10:59 | DI.RAD.S_ITS ---
PROCEDURE: XR HAND RT MIN 3V INDICATIONS: Right hand swelling TECHNIQUE: 3 views of the hand(s) acquired. COMPARISON: None. FINDINGS: Bones: No fractures or dislocations. Carpal bones are normally aligned. No suspicious bony lesions. No bony erosive changes are seen. Soft tissues: No suspicious soft tissue calcifications. IMPRESSION: Unremarkable radiographic examination of right hand. Dictated by: Orestes Stuart M.D. on 02/02/2021 at 11:50 Approved by: Orestes Stuart M.D. on 02/02/2021 at 11:51
[2021-02-02 12:02] LABS: C-Reactive Protein Quant < 0.5 mg/dL (<1.0)
[2021-02-02 12:05] LABS: Rheumatoid Factor < 8.6 IU/mL (<12.0)
[2021-02-02 12:14] LABS: Erythrocyte Sedimentation Rate 5 MM/HR (0-20)
[2021-02-04 15:45] LABS: ANA Screen, IFA Negative (.)
== END ==
PROVIDERS: PCP Family Medicine; Referring Provider Family Medicine; Visit Provider Family Medicine
DX: G54.0 Brachial plexus disorders (principal); M79.89 Other specified soft tissue disorders
CPT/HCPCS: 36415; 73130; 85651; 86038; 86140; 86430

== ENCOUNTER 2021-04-12 15:15 | Outpatient (RCR) | payer OTHER, SELFPAY ==
[2020-08-04 21:12] VITALS: BMI 22.8
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
--- NOTE | 2021-02-28 17:44 | PT.OPPOC ---
Physical, Occupational & Speech Therapy At [facility] Current Diagnoses Brachial plexus disorders (02/28/21) Radiculopathy, cervical region (02/28/21) Cervicalgia (02/28/21) Abnormal posture (02/28/21) Weakness (02/28/21) Visit Care Team Role Provider Type Hudson Cadena MD Attending Provider Physician Primary Care Provider Referring Provider Specialty: Family Practice Address: [address] [place] [address], [facility] Email: [email or web address] Plan Of Care PT-OP-T Assessment and Plan Start: 02/23/21 17:54 Freq: Status: Active Protocol: Document 02/28/21 14:50 [facility] (Rec: 02/28/21 16:07 [facility] [id number]) Physical Therapy Assessment Rehab Potential Rehabilitation Potential Excellent Evaluation Complexity Number of Personal Factors/Comorbidities 3 or More Number of Body Systems Impaired 4 or More Clinical Presentation at Evaluation Evolving Impairments Impairments Activity Tolerance,Edema, Functional Activities, Functional Mobility,Pain, Posture,ROM,Soft Tissue Mobility,Strength Goals ROM Short Term Goal (STG) Pt will have full neck rotation to make it easier for her to partiicpate in her work tasks along w/driving. STG Duration 04/04/21 functional tests Enterprise Sales Executive Goal (LTG) Pt will score no more than 2/ 50 on NDI and no more than 5 on quick DASh to show improved functional ability. LTG Duration 04/30/21 activities Short Term Goal (STG) Pt will be able to write without increasted pain STG Duration 04/04/21 Fpc Goal (LTG) Pt will be able to do all art and music and work related activities w/o inc pain in neck, arm or EDWARDS. LTG Duration 04/30/21 strength Short Term Goal (STG) Pt will be indep w/HEP STG Duration 03/31/21 Fpc Goal (LTG) Pt will score 5/5 on all MMT and will have at least 4/5 EFT to show improved stability in order to improve pt's ability to participate in her work and activities. LTG Duration 04/30/21 Assessment Summary Assessment Pt presents w/worsening of prior symptoms of neck pain and RUE radiculopathy that she has had on/off for the past 30 years. 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 She would bneeift from skilled PT to work on her deficits of posture, ROM, pain, strength and overall dec functional ability. Physical Therapy Plan Frequency and Duration Frequency of Treatment 2x/Week Duration of Treatment 2 months Plan of Care Start Date 02/28/21 Plan of Care End Date 04/30/21 Therapeutic Interventions Therapeutic Interventions Balance Training,Home Exercise Program,Joint Mobilizations, Manual Therapy,Neuromuscular Re-education,Patient/Caregiver Education,Self-Care/Home Management,Soft Tissue Mobilization,Taping, Therapeutic Activities, Therapeutic Exercises Modalities Cold Pack/Ice Massage,Electric Stimulation,Hot Packs, Infrared Therapy,Traction- Mechanical,Ultrasound Next Visit Focus/Plan Next Note Type Treatment Note Next Visit Plan review pt's old exercises, foam roll exercises to open up , wall posture exercise, chin tucks, self release w/tennis ball & cane, manual to tspine, PNF to R scap Plan of Care Dates Plan of Care Start Date 02/28/21 Plan of Care End Date 04/30/21 Electronically Signed by: Deloris Hatch, PT 03/03/21 0852 Please Sign and Return: I have reviewed this Plan of Care and certify that the skilled therapy services above are required to meet the patient?s needs. Physician Signature Date Printed Name and Credentials Clinical Instructor Signature Printed Name and Credentials
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
== END 2021-08-16 09:47 ==
LOC: PHYS 15:15
PROVIDERS: PCP Family Medicine; Referring Provider Family Medicine; Visit Provider Family Medicine
DX: G54.0 Brachial plexus disorders (principal); R53.1 Weakness; M54.2 Cervicalgia; R29.3 Abnormal posture
CPT/HCPCS: 97110; 97140; 97162; 97530; 97535

== ENCOUNTER → 2022-03-06 10:37 | Outpatient (CLI) | payer OTHER, SELFPAY ==
[2020-08-04 21:12] VITALS: BMI 22.8
--- NOTE | 2022-03-06 | DI.MG.S_ITS ---
BILATERAL DIGITAL SCREENING MAMMOGRAM 3D/2D WITH CAD: 03/06/2022 CLINICAL: Routine screening. Comparison is made to exam dated: 03/25/2018 mammogram - [facility]. There are scattered fibroglandular elements in both breasts. Current study was also evaluated with a Computer Aided Detection (CAD) system. There is a focal asymmetry in the left breast at 1 o'clock posterior depth. This is more prominent. No other significant masses, calcifications, or other findings are seen in either breast. IMPRESSION: INCOMPLETE: NEEDS ADDITIONAL IMAGING EVALUATION The focal asymmetry in the left breast is indeterminate. Additional views with possible ultrasound are recommended. Based on the Tyrer Cuzick model (a risk assessment model) the patient's lifetime risk is 4.2% and her 10 year risk is 0.8%. According to the ACR, ACS, and NCCN guidelines, an annual breast MRI exam along with mammogram is recommended if the patient's lifetime risk is 20% or greater. This exam was interpreted at Station ID: [id number]. NOTE: For mammograms, a report in lay terms will be sent to the patient. Approximately 15% of breast malignancies will not be visualized mammographically. In the management of a palpable breast mass, a negative mammogram must not discourage biopsy of a clinically suspicious lesion. Electronically Signed By: Juanjose cano/idania:03/06/2022 15:37:55 letter sent: Additional Imaging Needed ACR BI-RADS Category 0: Incomplete 3340F
== END ==
PROVIDERS: PCP Family Medicine; Referring Provider Naturopath; Visit Provider Naturopath
DX: Z12.31 Encounter for screening mammogram for malignant neoplasm of breast (principal)
CPT/HCPCS: 77063; 77067

== ENCOUNTER → 2022-03-11 08:02 | Outpatient (CLI) | payer OTHER, SELFPAY ==
[2020-08-04 21:12] VITALS: BMI 22.8
[2022-03-11 09:27] LABS: Add Manual Diff / Slide Review NO; Basophils Absolute Auto 0 /uL (0-100); Basophils Percent Auto 0.8 % (0-2); Eosinophils Absolute Auto 100 /uL (0-450); Eosinophils Percent Auto 1.5 % (2-4); Hematocrit 42.4 % (36-46); Hemoglobin 14.8 g/dL (12.0-16.0); Lymphocytes Absolute Auto 1700 /uL (1100-4500); Lymphocytes Percent Auto 36.7 % (25-40); Mean Corpuscular HGB Conc 34.9 % (30-36); Mean Corpuscular Hemoglobin 32.7 PG (26-34); Mean Corpuscular Volume 93.8 fL (80-100); Monocytes Absolute Auto 400 /uL (0-900); Monocytes Percent Auto 9.5 % (3-14); Neutrophils Absolute Auto 2400 /uL (1500-7000); Neutrophils Percent Auto 51.5 % (50-75); Platelet Count 295 X10^3/uL (150-400); Red Blood Cell Count 4.52 X10^6/uL (4.0-5.2); Red Cell Distribution Width 12.9 % (11.6-14.8); White Blood Cell Count 4.6 X10^3/uL (4.5-11.0)
[2022-03-11 09:43] LABS: Alanine Aminotransferase 27 IU/L (<35); Albumin 4.4 g/dL (3.5-5.0); Albumin Globulin Ratio 1.5 (1.0-2.8); Alkaline Phosphatase 66 U/L (38-126); Aspartate Aminotransferase 26 IU/L (14-36); BUN Creatinine Ratio 26.2 (6-22); Bilirubin Total 0.7 mg/dL (0.2-1.3); Blood Urea Nitrogen 16 mg/dL (7-17); Calcium 8.9 mg/dL (8.4-10.2); Carbon Dioxide 28 mmol/L (22-32); Chloride 104 mmol/L (98-107); Cholesterol 211 mg/dL (140-199); Estimated Glomerular Filt Rate > 60 mL/min (>60); Globulin 2.9 g/dL (1.7-4.1); Glucose 99 mg/dL (70-100); HDL Cholesterol 78 mg/dL (40-60); HEMOLYSIS < 15 (0-50); LDL Cholesterol Calculated 113 mg/dL (<100); Potassium 4.2 mmol/L (3.4-5.1); Sodium 139 mmol/L (137-145); Total Protein 7.3 g/dL (6.3-8.2); Triglycerides 102 mg/dL (35-150)
[2022-03-11 10:00] LABS: Free T3, Triiodothyronine Free 3.72 pg/mL (2.77-5.27); Free T4, Direct Thyroxine 0.87 ng/dL (0.78-2.19)
[2022-03-11 10:13] LABS: Thyroid Stimulating Hormone 1.12 uIU/mL (0.47-4.68)
[2022-03-12 10:38] LABS: Thyroid Peroxidase Antibodies <8 IU/mL (0-34)
== END ==
PROVIDERS: PCP Family Medicine; Referring Provider Naturopath; Visit Provider Naturopath
DX: Z00.00 Encounter for general adult medical examination without abnormal findings (principal); R53.83 Other fatigue
CPT/HCPCS: 36415; 80053; 80061; 84439; 84443; 84481; 85025; 86376

== ENCOUNTER → 2022-08-04 10:05 | Outpatient (CLI) | payer OTHER, SELFPAY ==
[2020-08-04 21:12] VITALS: BMI 22.8
[2022-08-04 11:07] LABS: Alanine Aminotransferase 29 IU/L (<35); Alkaline Phosphatase 65 U/L (38-126); Aspartate Aminotransferase 31 IU/L (14-36); BUN Creatinine Ratio 26.2 (6-22); Bilirubin Total 1.2 mg/dL (0.2-1.3); Blood Urea Nitrogen 17 mg/dL (7-17); Calcium 9.3 mg/dL (8.4-10.2); Carbon Dioxide 31 mmol/L (22-32); Chloride 102 mmol/L (98-107); Estimated Glomerular Filt Rate > 60 mL/min (>60); Glucose 81 mg/dL (70-100); HEMOLYSIS < 15 (0-50); Sodium 141 mmol/L (137-145)
[2022-08-04 11:37] LABS: TSH w/ Reflex to FT4 0.87 uIU/mL (0.47-4.68)
[2022-08-04 12:51] LABS: Appearance Urine UA SL CLOUDY; Bilirubin Urine UA NEGATIVE (NEGATIVE); Color Urine UA YELLOW; Glucose Urine UA NEGATIVE (Negative); Ketones Urine UA NEGATIVE (NEGATIVE); Leukocyte Esterase Urine UA NEGATIVE (NEGATIVE); Nitrite Urine UA NEGATIVE (Negative); Occult Blood Urine UA TRACE-LYSED (Negative); Protein Urine UA NEGATIVE (Negative); Specific Gravity Urine UA 1.025 (1.000-1.035); Urobilinogen Urine UA 0.2 E.U./dL (0.2); pH Urine UA 5.5 (4.5-8.0)
[2022-08-04 13:06] LABS: Bacteria Urine Moderate (10-30); Culture Indicated Urine Specimen Cultured; RBC Urine None Seen (0-5/HPF); Squamous Epithelial Cell Urine 5-10 /HPF (0-5/HPF); WBC Urine None Seen (0-5/HPF)
[2022-08-04 16:34] LABS: Albumin 4.6 g/dL (3.5-5.0); Albumin Globulin Ratio 1.4 (1.0-2.8); Globulin 3.4 g/dL (1.7-4.1)
== END ==
PROVIDERS: PCP Family Medicine; Referring Provider Family Medicine; Visit Provider Family Medicine
DX: F31.81 Bipolar II disorder (principal); R45.86 Emotional lability
CPT/HCPCS: 36415; 80053; 81001; 84443; 87077; 87086; 87186

== ENCOUNTER → 2022-08-08 08:42 | Outpatient (CLI) | payer OTHER, SELFPAY ==
[2020-08-04 21:12] VITALS: BMI 22.8
--- NOTE | 2022-08-08 08:44 | DI.MG.S_ITS ---
UNILATERAL LEFT DIGITAL DIAGNOSTIC MAMMOGRAM 3D/2D WITH ADDITIONAL VIEWS: 08/08/2022 CLINICAL: Additional evaluation requested from prior study. Comparison is made to exams dated: 03/06/2022 mammogram and 03/25/2018 mammogram - [facility]. There are scattered areas of fibroglandular density in the left breast (category b / 25%-50% glandular tissue). The previously described equal density focal asymmetry in the left breast at 1 o'clock posterior depth is not confirmed in additional views. It appears less prominent and decreased in size. No other significant masses or calcifications are seen in the breast. IMPRESSION: INCOMPLETE: NEEDS ADDITIONAL IMAGING EVALUATION The equal density focal asymmetry in the left breast most likely is fibroglandular tissue and is indeterminate. An ultrasound is recommended for further evaluation and is scheduled to immediately follow this examination. Based on the Tyrer Cuzick model (a risk assessment model) the patient's lifetime risk is 4.0% and her 10 year risk is 0.8%. According to the ACR, ACS, and NCCN guidelines, an annual breast MRI exam along with mammogram is recommended if the patient's lifetime risk is 20% or greater. This exam was interpreted at Station ID: [id number]. NOTE: For mammograms, a report in lay terms will be sent to the patient. Approximately 15% of breast malignancies will not be visualized mammographically. In the management of a palpable breast mass, a negative mammogram must not discourage biopsy of a clinically suspicious lesion. Electronically Signed By: Pedro Bhatti M.D. aty/:08/08/2022 09:46:05 ACR BI-RADS Category 0: Incomplete 3340F
--- NOTE | 2022-08-08 08:44 | DI.US.S_ITS ---
ULTRASOUND OF LEFT BREAST: 08/08/2022 CLINICAL: Patient returns today to evaluate an asymmetry in the left breast. Comparison is made to exams dated: 08/08/2022 mammogram, 03/06/2022 mammogram, and 03/25/2018 mammogram - [facility]. Color flow and real-time ultrasound of the left breast were performed. [place] scale images of the real-time examination were reviewed. No significant abnormalities were seen sonographically in the left breast. IMPRESSION: NEGATIVE There is no sonographic evidence of malignancy. There is no abnormality seen in the left breast to correspond with the mammography finding which likely represents normal fibroglandular tissue. Return to annual mammogram screening schedule is recommended which is due approximately February 2023. Findings and recommendations were conveyed to the patient during today's evaluation. This exam was interpreted at Station ID: [id number]. Electronically Signed By: Pedro Bhatti M.D. aty/:08/08/2022 09:47:22 copy to: [facility] letter sent: Normal Exam Ultrasound BI-RADS: 1 Negative
== END ==
PROVIDERS: PCP Family Medicine; Referring Provider Naturopath; Visit Provider Naturopath
DX: R92.8 Other abnormal and inconclusive findings on diagnostic imaging of breast (principal)
CPT/HCPCS: 76642; 77065; G0279

== ENCOUNTER → 2022-08-21 09:54 | Outpatient (CLI) | payer OTHER, SELFPAY ==
[2020-08-04 21:12] VITALS: BMI 22.8
[2022-08-21 11:30] LABS: Lithium 0.6 mmol/L (0.6-1.2)
== END ==
PROVIDERS: PCP Family Medicine; Referring Provider Family Medicine; Visit Provider Family Medicine
DX: F31.81 Bipolar II disorder (principal)
CPT/HCPCS: 36415; 80178

== ENCOUNTER → 2022-09-11 11:25 | Outpatient (CLI) | payer OTHER, SELFPAY ==
[2020-08-04 21:12] VITALS: BMI 22.8
[2022-09-11 11:53] LABS: Add Manual Diff / Slide Review NO; Basophils Absolute Auto 0 /uL (0-100); Basophils Percent Auto 0.7 % (0-2); Eosinophils Absolute Auto 100 /uL (0-450); Eosinophils Percent Auto 1.2 % (2-4); Hematocrit 42.5 % (36-46); Lymphocytes Absolute Auto 1800 /uL (1100-4500); Lymphocytes Percent Auto 36.7 % (25-40); Mean Corpuscular HGB Conc 33.1 % (30-36); Mean Corpuscular Hemoglobin 31.1 PG (26-34); Mean Corpuscular Volume 93.9 fL (80-100); Monocytes Absolute Auto 400 /uL (0-900); Monocytes Percent Auto 8.2 % (3-14); Neutrophils Absolute Auto 2600 /uL (1500-7000); Neutrophils Percent Auto 53.2 % (50-75); Platelet Count 239 X10^3/uL (150-400); Red Blood Cell Count 4.52 X10^6/uL (4.0-5.2); Red Cell Distribution Width 12.8 % (11.6-14.8); White Blood Cell Count 4.9 X10^3/uL (4.5-11.0)
[2022-09-11 11:59] LABS: Ammonia (NH3) < 9 umol/L (9-30)
[2022-09-11 12:24] LABS: Alanine Aminotransferase 27 IU/L (<35); Albumin 4.4 g/dL (3.5-5.0); Albumin Globulin Ratio 1.5 (1.0-2.8); Alkaline Phosphatase 63 U/L (38-126); Aspartate Aminotransferase 25 IU/L (14-36); Blood Urea Nitrogen 19 mg/dL (7-17); Calcium 8.8 mg/dL (8.4-10.2); Carbon Dioxide 27 mmol/L (22-32); Chloride 102 mmol/L (98-107); Estimated Glomerular Filt Rate > 60 mL/min (>60); Glucose 89 mg/dL (70-100); HEMOLYSIS < 15 (0-50); Potassium 3.9 mmol/L (3.4-5.1); Prothrombin Time 10.9 SECONDS (10.1-12.7); Sodium 137 mmol/L (137-145); Total Protein 7.4 g/dL (6.3-8.2)
[2022-09-12 23:36] LABS: Valproic Acid (Depakene) Total < 4 ug/mL (50-100)
== END ==
PROVIDERS: PCP Family Medicine; Referring Provider Family Medicine; Visit Provider Family Medicine
DX: F31.81 Bipolar II disorder (principal); Z79.899 Other long term (current) drug therapy
CPT/HCPCS: 36415; 80053; 80164; 82140; 85025; 85610